=== PATIENT | male | born 1955 | race Caucasian/White ===

== ENCOUNTER 2024-01-06 17:09 | Inpatient (IN) | payer MEDICARE, OTHER, SELFPAY ==
[2024-01-06 13:46] VITALS: BP 140/67
[2024-01-06 14:12] LABS: % Basophils 0.9 % (0-2); % Eosinophils 1.7 % (0-6); % Immature Granulocytes 0.3 % (0-0.5); % Lymphocytes 11.1 % (20.5-51.1); % Monocytes 5.2 % (1.7-9.3); % Neutrophils 80.8 % (42.2-75.2); Absolute Basophils 0.1 10^3/uL (0-0.2); Absolute Eosinophils 0.2 10^3/uL (0-0.7); Absolute Lymphocytes 1.6 10^3/uL (1.2-3.4); Absolute Monocytes 0.7 10^3/uL (0.1-0.6); Absolute Neutrophils 11.3 10^3/uL (1.4-6.5); Hematocrit 41.7 % (39.0-52.0); Hemoglobin 13.5 g/dL (13.0-18.0); Mean Corp Hgb Conc. 32.4 g/dL (33.0-37.0); Mean Corpuscular Hgb 28.7 pg (27.0-31.0); Mean Corpuscular Volume 88.7 fL (80.0-94.0); Mean Platelet Volume 10.1 fL (7.4-10.4); Nucleated Red Blood Cells % 0 % (-); Platelet Count 269 10^3/uL (130-400); Red Cell Dist. Width 15.2 % (11.5-14.5)
[2024-01-06 14:27] LABS: ALT (SGPT) 30 U/L (0-50); AST (SGOT) 47 U/L (17-59); Albumin 3.9 g/dl (3.5-5.0); Alkaline Phosphatase 159 U/L (38-126); Blood Urea Nitrogen 48 mg/dl (9-20); Calcium 11.2 mg/dl (8.4-10.2); Carbon Dioxide 25 mmol/L (22-30); Chloride 103 mmol/L (98-107); Glucose 216 mg/dl (70-99); Potassium 4.4 mmol/L (3.5-5.1); Sodium 138 mmol/L (135-145); Total Bilirubin 0.6 mg/dl (0.2-1.3); Total Protein 6.8 g/dl (6.3-8.2)
[2024-01-06 14:45] LABS: Troponin I 0.579 ng/ml
[2024-01-06 15:11] VITALS: BP 151/69
--- NOTE | 2024-01-06 15:13 | ED.GENMED ---
History of Present Illness
General
Chief Complaint: Blood Pressure Problem
Source: patient
Exam Limitations: none
Time Seen by Provider: 01/06/24 15:02
Travel History
Have you had any contact with someone who has COVID-19?: No
Do you have any symptoms of coronavirus? Fever > 100 degrees, chills, cough, shortness of breath, sore throat, loss of taste or smell, muscle aches, or headache?: No
History of Present Illness
History of Present Illness:
68-year-old male presents with intermittent episodes of a indigestion burning feeling in his chest. Has been going on for weeks. Worse this morning. Currently however at baseline and feels baseline. No shortness of breath no nausea no
diaphoresis. No back pain.
Past History
Past History
ED Past Medical History: CVA (TIA), HTN, Hypercholesterolemia, NIDDM and Other (Gout)
ED Past Surgical History: Other (Catheterization right leg, peroneal vein angioplasty)
Social History
Tobacco: Non-smoker
Alcohol: None
Drug: None
Personal:
Living: with family
Employment: Retired
Family History
Family History: Other (Brother with hiatal hernia)
Review of Systems
Review of Systems
All Other Systems: Not applicable
Constitutional: Denies fever
Respiratory: Reports no symptoms
ABD/GI: Reports no symptoms
Phy Exam
Physical Exam
Physical Exam:
GENERAL: Alert and oriented in no apparent distress
EYE: Orbits normal.
NECK: Supple
CARDIAC: Regular rate and rhythm without any obvious murmurs.
LUNGS: Clear breath sounds,normal
ABDOMEN: Soft, without focal tenderness or distention. Elevated BMI
NEUROLOGICAL: Alert and oriented , grossly non-focal
SKIN: Warm and dry, no rash or lesion, no discoloration, skin intact.
MUSCULOSKELETAL: Left AKA. Right BKA. Well-appearing stumps.
PSYCH: Normal and appropriate interaction.
Course
Orders/Labs/Results
Orders:
Orders
01/06/24
Electrocardiogram (*1) Stat
Reason for Study: Chest Pain
Comment: NO ORDER RECIEVED
01/06/24 13:48
Electrocardiogram (*1) Urgent
Reason for Study: Hypertension, Benign
01/06/24 13:49
EKG- Treatment ONCE
01/06/24 13:59
Complete Blood Count/With Diff Urgent
Comprehensive Metabolic Panel Urgent
Troponin I Urgent
01/06/24 15:53
Aspirin Chewable [Low Strength Aspirin] 324 mg PO NOW STA
Heparin 4,000 units IV NOW STA
Heparin Protocol- PTT Orders As Directed
PTT per Heparin protocol: -Obtain CBC and baseline PTT - if not already collected.
-Obtain PTT 6 hours from start of infusion. Then, every 6 hours until 2 consecutive
PTT's are therapeutic. Then, PTT Daily.
-With each rate change, obtain PTT every 6 hours until 2 consecutive PTT's are
therapeutic. Then, PTT Daily.
Notify MD As Directed
Notify physician if: PTT is greater than or equal to 200.
01/06/24 16:00
Heparin 65784 Units/250 ml 25,000 units in 250 ml IV PER PROTOCOL
Weight to be used for heparin protocol in kilograms (kg):: 128.3
Protocol:: Cardiac Tx/Acute Coronary
PTT Goal Range to be used:: PTT 73 to 111 seconds
Order type:: Initial
INITIAL Infusion Dose (UNITS/KG/hr) & then follow protocol:: 12 units/kg/hr
Infusion Dose in UNITS/hr & then follow protocol (UNITS/hr):: 1,000
INFUSION RATE in mL/hr & then follow protocol (mL/hr):: 10
PTT less than or equal to 64 seconds:: Increase rate by 200 units/hr (+ 2 mL/hr)
PTT 64.1 to 72.9 seconds:: Increase rate by 100 units/hr (+ 1 mL/hr)
PTT 73 to 111 seconds:: Target Range. No change in rate.
PTT 111.1 to 130.9 seconds:: Decrease rate by 100 units/hr (- 1 mL/hr)
PTT 131 to 199.9 seconds:: HOLD for 1 hr. Then decrease rate by 200 units/hr (- 2 mL/hr)
PTT greater than or equal to 200 seconds:: HOLD for 2 hrs & Notify Provider. Then decrease by 200 units/hr (-
2 mL/hr)
Lab follow-up:: Each change, PTT q6h until 2 consecutive are therapeutic. Then PTT
daily.
01/06/24 16:15
PTT Urgent
Comment: Obtain baseline before beginning heparin infusion if not already collected
01/06/24 16:35
Admit/Transfer Patient As Directed
Co-Sign Provider:
Level of Care: Inpatient admission
Assign to:: IVU
Physician / Group: Sheu
Diagnosis: NSTEMI
Reason for Hospitalization: heparin drip, cardiac cath
Expected length of stay greater than two midnights?: Yes
ELOS- Estimated Length of Stay in days: 3
I certify the patient meets the requirements for IP care: Yes
01/06/24 16:45
Code Status As Directed
Resuscitation Status: Full Code
01/06/24 18:16
Troponin I Q6H
01/06/24 22:15
Protime/PTT Urgent
01/07/24 00:00
Troponin I Q6H
01/07/24 06:00
Troponin I Q6H
01/08/24 06:00
Complete Blood Count/No Diff Q2D
Comment: Notify MD if platelet count is <130,000 or decreases by 50% from baseline
01/10/24 06:00
Complete Blood Count/No Diff Q2D
Comment: Notify MD if platelet count is <130,000 or decreases by 50% from baseline
01/12/24 06:00
Complete Blood Count/No Diff Q2D
Comment: Notify MD if platelet count is <130,000 or decreases by 50% from baseline
01/14/24 06:00
Complete Blood Count/No Diff Q2D
Comment: Notify MD if platelet count is <130,000 or decreases by 50% from baseline
01/16/24 06:00
Complete Blood Count/No Diff Q2D
Comment: Notify MD if platelet count is <130,000 or decreases by 50% from baseline
01/18/24 06:00
Complete Blood Count/No Diff Q2D
Comment: Notify MD if platelet count is <130,000 or decreases by 50% from baseline
01/20/24 06:00
Complete Blood Count/No Diff Q2D
Comment: Notify MD if platelet count is <130,000 or decreases by 50% from baseline
01/22/24 06:00
Complete Blood Count/No Diff Q2D
Comment: Notify MD if platelet count is <130,000 or decreases by 50% from baseline
Abnormal Lab Results
01/06/24
13:59
WBC 14.0 H 10^3/uL
(4.8-10.8)
MCHC 32.4 L g/dL
(33.0-37.0)
RDW 15.2 H %
(11.5-14.5)
Absolute Neuts (auto) 11.3 H 10^3/uL
(1.4-6.5)
Absolute Monos (auto) 0.7 H 10^3/uL
(0.1-0.6)
Neutrophils % 80.8 H %
(42.2-75.2)
Lymphocytes % 11.1 L %
(20.5-51.1)
BUN 48 H mg/dl
(9-20)
Creatinine 1.8 H mg/dL
(0.7-1.3)
Glucose 216 H mg/dl
(70-99)
Calcium 11.2 H mg/dl
(8.4-10.2)
Alkaline Phosphatase 159 H U/L
(38-126)
Troponin I 0.579 H* ng/ml
01/06/24 15:53
01/06/24 13:59
Vital Signs
Initial and Last Documented VS:
Initial Vital Signs
Temp Pulse Resp BP Pulse Ox
97.4 F 62 18 140/67 95
01/06/24 13:46 01/06/24 13:46 01/06/24 13:46 01/06/24 13:46 01/06/24 13:46
Last Documented Vital Signs
Temp Pulse Resp BP Pulse Ox
97.4 F 57 14 151/69 98
01/06/24 13:46 01/06/24 15:30 01/06/24 15:30 01/06/24 15:11 01/06/24 15:15
MDM/Problems Addressed
Differential Diagnosis Includes:
Patient with intermittent burning in his chest over weeks. Worse this morning. Positive troponin. Significant history of vascular disease. Currently stable. Referred to cardiology and hospitalist
*Critical Care Note
Total Time (30-74mins, 75-104mins- exclusive of procedures): Not Applicable
Data Reviewed
Review of Other/Old Records Reveals: Labs, Records and Discharge Summary
ED Attending Note
-
Portions of this chart may have been created with voice recognition software.� Occasional wrong word or��sound alike� substitutions may have occurred due to the inherent limitations of voice recognition software.
Discharge Plan
Departure
Patient Disposition: Admit
Date of Disposition: 01/06/24
Time of Disposition: 15:15
Presentation/result/management discussed w/ accepting MD/DO: Cardiology
Discharge Problem:
Non-STEMI PR, History of vascular disease, Renal insufficiency
Interventions
Interventions:
*Risk Screen - Suicide Last Done: 01/06/24 15:15
*General Assessment Last Done: 01/06/24 15:15
*Neglect/Abuse Screening Last Done: 01/06/24 15:15
ED- Fall Risk Assessment Last Done: 01/06/24 15:15
*ED COVID-19 Vaccine History Last Done: 01/06/24 15:15
ED- Cardiac Assessment Last Done: 01/06/24 15:15
ED- Neurological Assessment Last Done: 01/06/24 15:15
ED- Pulmonary Assessment Last Done: 01/06/24 15:15
[2024-01-06 15:15] VITALS: BMI 38.4
--- NOTE | 2024-01-06 15:40 | CON.CAR ---
Addendum entered and electronically signed by Vincent Cervantes MD 01/06/24 17:34:
68 yo male with PMH of PAD s/p bilateral amputations, DM, CKD3b, CVA is admitted with chest pressure. Has been intermittent at rest/minimal activity for about 2 weeks. Then worse this AM so presented to ED. No chest pressure at the time. Exam
with RRR, no murmurs. EKG: NSR, lateral ST depression. TnI 0.5.
Chest pressure, NSTEMI
-currently pain free
-take daily plavix for his PAD: continue
-ASA 324mg and heparin drip
-cath in AM
CKD3b
-nephrology consulted to optimize prior to cath
Original Note:
Consultation
Consultation Request
Date/Time Consultation Requested: 01/06/24 3:15p
Date/Time Consultation Performed: 01/06/24 3:30p
Requesting Provider: Dr. Lemons
Performing Provider: GWEN Jordan for Dr. Cervantes
Reason for Consultation: chest pain
Medical History
-
Chief Complaint: chest pain
History of Present Illness:
Mr. Andrade is a 68 yo male (known to Dr. Cervantes) with CAD (mild on cath 2005), PAD s/p right BKA and left AKA (06/2023) followed by Dr. Anton, HTN, dyslipidemia, hypertriglyceridemia, chronic HFpEF, 1st degree AVB, PACs, IDDM (hgbA1C 8.6% 06/2023), right
thalamic CVA 2014, TIA 2017, CKD3b managed by Dr. Coulnga, GERD, and morbid obesity, who presents to the ER with c/o midsternal chest pressure for 2-3 weeks. Chest pressure occurs at rest, lasts for 30 mins and resolves on its own. This am, chest
pressure lasted for 1 hour. Given his right BKA and left AKA, he does not ambulate and is wheelchair bound, transfers via a sliding board to bed. EKG in the ER shows SR with 1st degree AVB 61 bpm, ST and T wave abnormality, T wave inversion
inferior leads and ST depressed in lateral leads; initial troponin is 0.579. Currently he is chest pain free. He is on chronic Plavix for PAD, will give ASA 324mg now and initiate IV Heparin. ���
Past Medical History
Past Medical History: Other (as above)
Past Surgical History: Other (as above)
Social History
Tobacco: Non-Smoker
Alcohol: None
Personal:
Living: With Family
Family History
Family History: CAD (father age 79 complications of AAA surgery, CAD, HTN.)
Allergies / Home Medications
Allergy/AdvReac Type Severity Reaction Status Date / Time
No Known Drug Allergies Allergy Unknown Verified 01/06/24 13:46
�Medication �Instructions �Recorded �Confirmed �Type
allopurinol 100 mg tablet 100 mg PO DAILY #30 tabs 10/22/21 01/06/24 Rx
clonidine HCl 0.1 mg tablet 0.1 mg PO BID@0800,1700 #60 tabs 10/22/21 01/06/24 Rx
clopidogrel 75 mg tablet 75 mg PO DAILY #30 tabs 10/22/21 01/06/24 Rx
rosuvastatin 40 mg tablet 40 mg PO QPM #30 tabs 10/22/21 01/06/24 Rx
torsemide 5 mg tablet 5 mg PO DAILY Fluid 12/01/21 01/06/24 History
Retention/Swelling
metoprolol succinate 100 mg 100 mg PO DAILY Heart Failure 12/02/21 01/06/24 History
tablet,extended release 24 hr
(Toprol XL)
isosorbide mononitrate 30 mg 30 mg PO DAILY Heart 06/17/23 01/06/24 History
tablet,extended release 24 hr Disease/Condition
docusate sodium 100 mg capsule 100 mg PO DAILYPRN PRN constipaiton 09/02/23 01/06/24 History
(Colace)
finerenone 10 mg tablet (Kerendia) 10 mg PO DAILY 09/02/23 01/06/24 History
insulin regular hum U-500 conc 500 50 unit SC DAILY@1730 09/02/23 01/06/24 History
unit/mL(3 mL) subcut pen (Humulin
R U-500 (Conc) Insulin Kwikpen)
insulin regular hum U-500 conc 500 200 unit SC DAILY 09/02/23 01/06/24 History
unit/mL(3 mL) subcut pen (Humulin
R U-500 (Conc) Insulin Kwikpen)
sodium bicarbonate 650 mg tablet 1,300 mg PO BID 09/02/23 01/06/24 History
acetaminophen 325 mg tablet 650 mg PO Q6H PRN pain 09/06/23 01/06/24 History
lidocaine 4 % topical patch 1 patch topical DAILY PRN 09/06/23 01/06/24 History
(Blue-Emu Lidocaine Patch) prosthetic leg pain
multivitamin 1 tab PO DAILY 09/06/23 01/06/24 History
zinc oxide 13 % topical cream 1 applic topical DAILYPRN PRN bed 01/06/24 01/06/24 History
(Desitin Daily Defense) sores
Review of Systems
-
History Source: Patient and Family ()
All other systems: Negative unless noted
Physical Exam
Vital Signs
Temp Pulse Resp BP Pulse Ox
97.4 F 57 14 151/69 98
01/06/24 13:46 01/06/24 15:30 01/06/24 15:30 01/06/24 15:11 01/06/24 15:15
Lab Results
01/06/24 13:59
01/06/24 13:59
Troponin I 0.579 ng/ml H* 01/06/24 13:59
Physical Exam
General: Well Developed, Well Nourished and No Apparent Distress
HEENT: Normocephalic, Anicteric and Moist Mucous Membranes
Respiratory: Clear and Non Labored Respirations
Cardiac: S1/S2 and Regular Rhythm
Breast: Deferred by me
GI: Soft and Normal Bowel Sounds
Rectal: Deferred by Provider
Musculoskeletal: Other (right BKA, left AKA)
Skin: Warm and Dry
Neuro: AO x 3
Psych: Calm
Impression / Plan
-
NSTEMI - initial troponin 0.579 with chest pressure for 2-3 weeks.
- episodes this am lasted 1 hour.
- trend troponin to peak.
- EKG with SR with 1st degree AVB 61 bpm, ST and T wave abnormality, T wave inversion inferior leads and ST depressed in lateral leads.
- ASA 324mg now, IV Heparin.
- plan for cardiac cath in the am, NPO after midnight.
- continue Plavix.
PAD - s/p right BKA and left AKA.
- on Plavix managed by Dr. Anton.
HTN - stable on outpatient meds, continue.
HLD - stable on Crestor with LDL 47 09/2023.
- continue Crestor.
CKD3b - stable creatinine 1.8 today.
- managed by Dr. Colunga.
IDDM - continue insulin, per primary.
HFpEF - stable, EF 50-55%.
- not in overt HF on exam.
- he does not weigh himself at home due to right BKA and left AKA he is unable to stand.
- monitor.
Data Reviewed
-
EKG: Tracing Personally Visualized and interpreted (SR with 1st degree AVB 61 bpm, ST and T wave abnormality, T wave inversion inferior leads and ST depressed in lateral leads)
Medical Tests (Nuc Med, Echo etc): Report Reviewed by me (echo 03/2023: 50-55%, mild cLVH, no significant valve disease)
Labs: Labs Reviewed by me
Old Records: Reviewed
[2024-01-06 16:00] VITALS: BP 121/64
[2024-01-06] MEDS: HEPARIN 25000 UNITS/250 ML IV (16:16)
[2024-01-06] MEDS: LOW STRENGTH ASPIRIN 324 MG PO (16:16)
[2024-01-06] MEDS: HEPARIN 4000 UNITS IV (16:16)
[2024-01-06 16:46] LABS: APTT 27.7 Sec (23.4-35.0)
--- NOTE | 2024-01-06 16:50 | HPS.HSE ---
Addendum entered and electronically signed by Leatha Lamb MD 01/06/24 18:44:
I saw and examined the patient.
The HAIRSPRING FABRICATION SUPERVISOR or PA's note was reviewed and I agree with the note.
Comment:
68M ext pmhx including PVD s/p Lt AKA Rt BKA CKD III CVA HTN HLD DM HFpEF Morbid Obesity p/w intermittent progressive chest pain/pressure past several days patient originally attributed to indigestion, prompted to visit ED when symptom became
particularly severe. Typically notes symptom in morning, several times during the day, symptom can last up to an hour. ED eval was notable for troponin elevation and EKG concerning for inferior lead ST depressions and lateral lead T wave
inversions. Otherwise vital signs stable. Denied diaphoresis shortness of breath. Mild hypercalcemia noted. Endorses good oral intake. Denies appetite loss
Physical Exam
General: No pallor, cyanosis, or jaundice. Obese
HEENT: Throat clear. PERRLA Normocephalic atraumatic, skin growth noted on scalp present for years per patient and , nontender
NECK: Supple. No JVD Carotid Bruits
RESPIRATORY: Lungs clear to auscultation. No crackles wheezes stridor
CVS: S1, S2 normal. RRR. No murmur, rub or gallop.
ABDOMEN: Soft, non-tender. No distension. BS+/normal.
EXTREMITIES: No peripheral cyanosis or edema. s/p Lt AKA and Rt BKA
INK GRINDER: AOx3
#Chest Pain possible NSTEMI
#Hypercalcemia
#Diabetes
#CKD III
#HTN
trend troponin
cont home aid
cardio eval appreciated hep gtt, npo after midnight for cath
glycemic control, Diabetes HAIRSPRING FABRICATION SUPERVISOR consult
Nephro eval
blood pressure control
Original Note:
Family Physician
-
Family Physician: Geoffrey Maya
Chief Complaint
-
Chest Pain
History of Present Illness
Patient is 68-year-old male past medical history of peripheral arterial disease, hypertension, hyperlipidemia, insulin-dependent diabetes mellitus, and CKD who presents with chest pain/pressure. Patient reports he has had intermittent chest
pressure for the last several days. He describes it as a burning/pressure in the middle of his chest. He states he has had it several times over the last few days. He states it usually last about an hour and then resolves. He states it seems to
occur more frequently in the morning. He denies any associated shortness of breath or diaphoresis. He denies any chest pain/pressure at the present time.
Medical History
Past Medical History
Past Medical History: Reports Other
Additional Past Medical History:
Peripheral Arterial Disease
Essential Hypertension
Hyperlipidemia
Diabetes Mellitus, Type II
CKD Stage III
Gout
Morbid Obesity
Past Surgical History: Reports Other
Additional Past Surgical History:
Right Below Knee Amputation
Left Above Knee Amputation
Social History
Tobacco: Non-smoker
Alcohol: None
Personal:
Living: With Family
Family History
Family History: Not pertinent
Allergies / Home Medications
Allergies reflects when Allergies were last updated in [employer].
Home Medications with original date entered in [employer]
Allergy/Medication List:
Allergies
Allergy/AdvReac Type Severity Reaction Status Date / Time
No Known Drug Allergies Allergy Unknown Verified 01/06/24 13:46
Home Medications
allopurinol 100 mg tablet 100 mg PO DAILY #30 tabs 10/22/21
clonidine HCl 0.1 mg tablet 0.1 mg PO BID@0800,1700 #60 tabs 10/22/21
clopidogrel 75 mg tablet 75 mg PO DAILY #30 tabs 10/22/21
rosuvastatin 40 mg tablet 40 mg PO QPM #30 tabs 10/22/21
torsemide 5 mg tablet 5 mg PO DAILY Fluid Retention/Swelling 12/01/21
metoprolol succinate 100 mg tablet,extended release 24 hr (Toprol XL) 100 mg PO DAILY Heart Failure 12/02/21
isosorbide mononitrate 30 mg tablet,extended release 24 hr 30 mg PO DAILY Heart Disease/Condition 06/17/23
docusate sodium 100 mg capsule (Colace) 100 mg PO DAILYPRN PRN constipaiton 09/02/23
finerenone 10 mg tablet (Kerendia) 10 mg PO DAILY 09/02/23
insulin regular hum U-500 conc 500 unit/mL(3 mL) subcut pen (Humulin R U-500 (Conc) Insulin Kwikpen) 50 unit SC DAILY@1730 09/02/23
insulin regular hum U-500 conc 500 unit/mL(3 mL) subcut pen (Humulin R U-500 (Conc) Insulin Kwikpen) 200 unit SC DAILY 09/02/23
sodium bicarbonate 650 mg tablet 1,300 mg PO BID 09/02/23
acetaminophen 325 mg tablet 650 mg PO Q6H PRN pain 09/06/23
lidocaine 4 % topical patch (Blue-Emu Lidocaine Patch) 1 patch topical DAILY PRN prosthetic leg pain 09/06/23
multivitamin 1 tab PO DAILY 09/06/23
zinc oxide 13 % topical cream (Desitin Daily Defense) 1 applic topical DAILYPRN PRN bed sores 01/06/24
Review of Systems
-
A 12 point ROS was completed and negative except as noted: Yes
Constitutional: Denies Fever or Chills
Respiratory: Denies Cough or Trouble Breathing
Cardiac: Reports Chest Pain; Denies Diaphoresis, Palpitations or Syncope
Abdomen/GI: Denies Abdominal Pain, Nausea or Vomiting
Physical Exam
Vital Signs
Vital Signs
Temp Pulse Resp BP Pulse Ox
97.4 F 57 14 151/69 98
01/06/24 13:46 01/06/24 15:30 01/06/24 15:30 01/06/24 15:11 01/06/24 15:15
Physical Exam
General: Comfortable and Conversant
HEENT: Anicteric and Moist mucous membranes
Respiratory: Clear and Non Labored Respirations
Cardiac: S1/S2 and Regular Rhythm
GI: Soft and Non Tender
Rectal: Deferred by Provider
Musculoskeletal: No Clubbing, No Cyanosis and Other (Right BKA; Left AKA)
Skin: Warm and Dry
Neuro: Awake, Alert, Oriented and Nonfocal/grossly intact
Laboratory Results
-
01/06/24 15:53
01/06/24 13:59
Laboratory Results
APTT 27.7 Sec (23.4-35.0) 01/06/24 16:15
Total Bilirubin 0.6 mg/dl (0.2-1.3) 01/06/24 13:59
AST 47 U/L (17-59) 01/06/24 13:59
ALT 30 U/L (0-50) 01/06/24 13:59
Alkaline Phosphatase 159 U/L (38-126) H 01/06/24 13:59
Troponin I 0.579 ng/ml H* 01/06/24 13:59
Data Reviewed
-
Lab Data: Labs Reviewed by me
Old Records: Reviewed
Impression/Plan
-
NSTEMI
-Consult cardiology
-Continue heparin drip
-Continue Plavix
-NPO after midnight for cardiac cath in AM
Hypercalcemia
-Consult Nephrology
-Check ionized calcium, vitamin D and PTH
Peripheral Arterial Disease s/p right BKA and left AKA
-Continue Plavix
Essential Hypertension
-Continue clonidine and Toprol-XL
Hyperlipidemia
-Continue rosuvastatin
Diabetes Mellitus, Type II
-Check hemoglobin A1c
-Consult nurse educator for insulin management
-Continue Humulin R U�500
-Monitor sugars and continue coverage insulin
CKD Stage III
-Give sodium bicarb infusion pre/post cardiac cath
-Monitor creatinine closely
-Monitor I's and O's, and daily weights
-Continue Kerendia
-Continue sodium bicarbonate tabs
Morbid Obesity due to Excess Calories
-Affects all aspects of care
DVT proph: Heparin Drip
Code Status: Full Code
[2024-01-06 17:00] VITALS: BP 139/65
--- NOTE | 2024-01-06 17:03 | W.CON.NEPH ---
Consultation
-
Date/Time Consultation Requested: 01/06/2024 4:30 PM
Date/Time Consultation Performed: 01/06/2024 4:30 PM
Requesting Provider: Phyllis
Performing Provider: gerard
Reason for Consultation: CKD 3b
Medical History
-
Chief Complaint: CKD 3b
History of Present Illness:
Mr. Andrade is a 68 yo male (known to Dr. Cervantes) with CAD (mild on cath 2005), PAD s/p right BKA and left AKA (06/2023) followed by Dr. Anton, HTN, dyslipidemia, hypertriglyceridemia, chronic HFpEF, 1st degree AVB, PACs, IDDM (hgbA1C 8.6% 06/2023), right
thalamic CVA 2014, TIA 2017, CKD3b managed by Dr. Colunga, GERD, and morbid obesity, who presents to the ER with c/o midsternal chest pressure for 2-3 weeks. Chest pressure occurs at rest, lasts for 30 mins and resolves on its own. This am, chest
pressure lasted for 1 hour. Given his right BKA and left AKA, he does not ambulate and is wheelchair bound, transfers via a sliding board to bed. EKG in the ER shows SR with 1st degree AVB 61 bpm, ST and T wave abnormality, T wave inversion
inferior leads and ST depressed in lateral leads; initial troponin is 0.579. Currently he is chest pain free. He is on chronic Plavix for PAD, will give ASA 324mg now and initiate IV Heparin. �His baseline creatinine was stable at 1.7 last week in
the setting of his CKD. He is maintained chronically on torsemide therapy for his congestive heart failure. He is maintained on insulin therapy for his diabetes. We were consulted for his chronic kidney disease stage IIIb in the setting of his
non-ST elevation [place] which will require cardiac catheterization in the morning.��
Past Medical History
CKD stage IIIb baseline creatinine 1.7
Insulin requiring diabetes
PAD with bilateral amputations of lower extremity
Prior history of CVA
Dyslipidemia
Congestive heart failure with preserved ejection fraction
Right thalamic CVA in 2014 with TIA in 2018
Obesity
Ambulatory dysfunction
Coronary artery disease of nonobstructive type
Social History
Tobacco: Non-Smoker
Alcohol: None
Family History
no ckd
Allergies / Home Medications
Allergy/AdvReac Type Severity Reaction Status Date / Time
No Known Drug Allergies Allergy Unknown Verified 01/06/24 13:46
�Medication �Instructions �Recorded �Confirmed �Type
allopurinol 100 mg tablet 100 mg PO DAILY #30 tabs 10/22/21 01/06/24 Rx
clonidine HCl 0.1 mg tablet 0.1 mg PO BID@0800,1700 #60 tabs 10/22/21 01/06/24 Rx
clopidogrel 75 mg tablet 75 mg PO DAILY #30 tabs 10/22/21 01/06/24 Rx
rosuvastatin 40 mg tablet 40 mg PO QPM #30 tabs 10/22/21 01/06/24 Rx
torsemide 5 mg tablet 5 mg PO DAILY Fluid 12/01/21 01/06/24 History
Retention/Swelling
metoprolol succinate 100 mg 100 mg PO DAILY Heart Failure 12/02/21 01/06/24 History
tablet,extended release 24 hr
(Toprol XL)
isosorbide mononitrate 30 mg 30 mg PO DAILY Heart 06/17/23 01/06/24 History
tablet,extended release 24 hr Disease/Condition
docusate sodium 100 mg capsule 100 mg PO DAILYPRN PRN constipaiton 09/02/23 01/06/24 History
(Colace)
finerenone 10 mg tablet (Kerendia) 10 mg PO DAILY 09/02/23 01/06/24 History
insulin regular hum U-500 conc 500 50 unit SC DAILY@1730 09/02/23 01/06/24 History
unit/mL(3 mL) subcut pen (Humulin
R U-500 (Conc) Insulin Kwikpen)
insulin regular hum U-500 conc 500 200 unit SC DAILY 09/02/23 01/06/24 History
unit/mL(3 mL) subcut pen (Humulin
R U-500 (Conc) Insulin Kwikpen)
sodium bicarbonate 650 mg tablet 1,300 mg PO BID 09/02/23 01/06/24 History
acetaminophen 325 mg tablet 650 mg PO Q6H PRN pain 09/06/23 01/06/24 History
lidocaine 4 % topical patch 1 patch topical DAILY PRN 09/06/23 01/06/24 History
(Blue-Emu Lidocaine Patch) prosthetic leg pain
multivitamin 1 tab PO DAILY 09/06/23 01/06/24 History
zinc oxide 13 % topical cream 1 applic topical DAILYPRN PRN bed 01/06/24 01/06/24 History
(Desitin Daily Defense) sores
Review of Systems
-
History Source: Patient
All other systems: Negative unless noted
Constitutional: No Symptoms
EENT: No Symptoms
Respiratory: No Symptoms
Cardiac: Chest Pain
Abdomen/GI: No Symptoms
: No Symptoms
Musculoskeletal: Other (Right BKA left AKA)
Skin: No Symptoms
Neurological: Other (Neuropathy)
Endocrine: No Symptoms
Hematologic/Lymphatic: No Symptoms
Physical Exam
Vital Signs
Vital Signs
Temp Pulse Resp BP Pulse Ox
97.4 F 57 14 151/69 98
01/06/24 13:46 01/06/24 15:30 01/06/24 15:30 01/06/24 15:11 01/06/24 15:15
Lab Results
01/06/24 15:53
01/06/24 13:59
WBC Cancelled 01/06/24 15:53
RBC Cancelled 01/06/24 15:53
Hgb Cancelled 01/06/24 15:53
Hct Cancelled 01/06/24 15:53
Plt Count Cancelled 01/06/24 15:53
Sodium 138 mmol/L (135-145) 01/06/24 13:59
Potassium 4.4 mmol/L (3.5-5.1) 01/06/24 13:59
Chloride 103 mmol/L (98-107) 01/06/24 13:59
Carbon Dioxide 25 mmol/L (22-30) 01/06/24 13:59
BUN 48 mg/dl (9-20) H 01/06/24 13:59
Creatinine 1.8 mg/dL (0.7-1.3) H 01/06/24 13:59
eGFR 41.00 01/06/24 13:59
Glucose 216 mg/dl (70-99) H 01/06/24 13:59
Calcium 11.2 mg/dl (8.4-10.2) H 01/06/24 13:59
Albumin 3.9 g/dl (3.5-5.0) 01/06/24 13:59
Physical Exam
General: AOx3, No Distress and Nontoxic
HEENT: EOMI, Anicteric, Conjunctivae Clear, Ear/Nose Intact, Hearing Normal, Oropharynx Clear/Moist, Facial Symmetry, Trachea Midline, No JVD and No Thyromegaly
Respiratory: Clear, Nonlabored Respirations and Other (Decreased breath sounds to bases)
Cardiac: S1/S2 and Regular Rate/Rhythm (Distant heart sounds)
Breast: Deferred by me
Abdomen: Soft, Nontender, Nondistended, Normal Bowel Sounds and No Hepatosplenomegaly
Rectal: Deferred by Provider
Genito-urinary: No Costovertebral Tender
Musculoskeletal: No Clubbing, No Cyanosis, Edema (+1) and Other (Right BKA left AKA)
Skin: No Rash
Neuro: CN II-XII (Neurosensory deficits at stump site) and Strength
Hematologic/Lymphatic: No Cervical Lymphadenopathy, No Submandibular Lymphadenopathy and No Supraclavicular Lymphadenopathy
Psych: Mood/afflect pleasant, Insight/judgement good and Appropriate
Assessment/Plan
-
Impression:
CKD stage IIIb with baseline creatinine of 1.7
Non-ST elevation [place]
Obesity
History of coronary artery disease
History of stroke
Diabetes with multiple microvascular complication
Multidrug resistant hypertension
Gout
Congestive heart failure with preserved EF
PAD with bilateral lower extremity amputations
Chronic metabolic acidosis on sodium bicarbonate
Plan:
CKD 3b in setting of NSTEMI:
-Patient will be at low to moderate risk for contrast nephropathy following cardiac catheterization, given his congestive heart failure, CKD stage IIIb, diabetes, and peripheral vascular disease
-We will provide IV fluids for contrast prophylaxis pre and postprocedure
-We will withhold his torsemide prior to the cardiac cath tomorrow
-His kidney function is currently at its baseline
-Patient currently on heparin drip in setting of unstable angina
Congestive heart failure:
-Does not appear to have decompensated congestive heart failure at this time
-Reinitiate torsemide following cardiac catheterization tomorrow
Hypertension:
-Maintain current oral antihypertensives
Metabolic acidosis:
-Maintain oral sodium bicarbonate
Data Reviewed
-
Medical Tests (Nuc Med, Echo etc): Other (EKG report reviewed sinus rhythm anterior lateral ischemic pattern)
Labs: Labs Reviewed by me (Basic metabolic panel CBC troponin)
Old Records: Reviewed (Reviewed old lab work from last week including creatinine 1.7)
[2024-01-06 18:00] VITALS: BMI 38.4
--- NOTE | 2024-01-06 18:32 | W.PN.UPDATE ---
Update Note
Progress Note Update
billing purposes
[2024-01-06 18:35] VITALS: BP 157/65
[2024-01-06 18:42] VITALS: BMI 38.2
--- NOTE | 2024-01-06 19:22 | PTCARENOTE ---
Received patient from the ED to room 2254, at the bedside. Heparin infusing at 1000 units/hr, patient denies any pain at this time. Aware he will be NPO for cath in the AM. Nursing admission assessment completed, call shantal within reach.
[2024-01-06 19:26] LABS: Glucose - Point of Care 102 mg/dl (70-99)
[2024-01-06] MEDS: CATAPRES 0.100000000000000006 MG PO (19:38)
[2024-01-06] MEDS: CRESTOR 40 MG PO (19:38)
[2024-01-06] MEDS: SODIUM BICARBONATE 1300 MG PO (19:38)
--- NOTE | 2024-01-06 20:57 | PTCARENOTE ---
Resumed care at handoff. Heparin gtt infusing at 1000units/hr. No c/o chest pain at this time. Tele- SB 40-50s. Pt w/ RLE BKA c/d/i and LLE AKA pink scabbed HAKEEM. Pt states having breakfast, skipping lunch, and having turkey sandwich for dinner. Pt
due for R U-500 Humulin 50 units at 1999. Accu-check 102. Pt refusing insulin. Pt states he did not have much to eat today and will be NPO for tomorrows cath. States he would not take any insulin if he was at home. Paola Morales aware.
--- NOTE | 2024-01-06 21:10 | PTCARENOTE ---
Pt troponin 8.080. Paola Morales aware. No c/o CP. Next troponin due for 00:00.
--- NOTE | 2024-01-06 21:35 | PN.PHA.U500 ---
PHA U500 Dosing
- -
Information provided by: Patient
Patient Uses a U-500: Pen
If patient uses vial, insulin measured in: Insulin Units
How often is U-500 taken: 0800,1730
U-500 Insulin dose adjusted based on blood sugar: No
When was last dose of U-500 Insulin taken: 4/4 AM
How much U-500 Insulin was taken: 200 UNITS
[2024-01-06 22:49] LABS: Glucose - Point of Care 111 mg/dl (70-99)
[2024-01-06 22:50] VITALS: BP 147/67
[2024-01-06 23:16] LABS: INR 1.11; PT 14.4 Sec (11.4-14.6)
[2024-01-06 23:17] LABS: APTT 40.5 Sec (23.4-35.0)
[2024-01-07] VITALS (13 sets, daily range): BP systolic 89–160; BP diastolic 49–73; BMI 37.8
[2024-01-07 05:21] LABS: Ionized Calcium 1.34 mMOL/L (1.15-1.33)
[2024-01-07 05:22] LABS: Hematocrit 42.2 % (39.0-52.0); Hemoglobin 13.5 g/dL (13.0-18.0); Mean Corpuscular Volume 90.8 fL (80.0-94.0); Mean Platelet Volume 10.4 fL (7.4-10.4); Platelet Count 243 10^3/uL (130-400); Red Blood Cell Count 4.65 10^6/uL (4.70-6.10); Red Cell Dist. Width 15.3 % (11.5-14.5); White Blood Cell Count 12.1 10^3/uL (4.8-10.8)
[2024-01-07 05:34] LABS: APTT 43.1 Sec (23.4-35.0)
[2024-01-07 05:54] LABS: Blood Urea Nitrogen 44 mg/dl (9-20); Calcium 11.2 mg/dl (8.4-10.2); Carbon Dioxide 22 mmol/L (22-30); Chloride 106 mmol/L (98-107); Estimated Creatinine Clearance 59 ml/min; Glucose 182 mg/dl (70-99); Magnesium 2.2 mg/dl (1.6-2.3); Phosphorus 3.9 mg/dl (2.5-4.5); Potassium 4.5 mmol/L (3.5-5.1); Sodium 139 mmol/L (135-145); eGFR 43.91
[2024-01-07 06:10] LABS: Vitamin D, 25-OH*** 37.8 ng/mL (30-80)
--- NOTE | 2024-01-07 07:09 | W.PN.HOSP.TC ---
Today's Communication/Plan
-
dual antiplatelet
glycemic control
bicarb gtt as per nephro
monitor renal function calcium
blood pressure control
Assessment / Plan
Assessment / Plan
Physical Exam
General: No pallor, cyanosis, or jaundice. Obese
HEENT: Throat clear. PERRLA Normocephalic atraumatic, skin growth noted on scalp present for years per patient and , nontender
NECK: Supple. No JVD Carotid Bruits
RESPIRATORY: Lungs clear to auscultation. No crackles wheezes stridor
CVS: S1, S2 normal. RRR. No murmur, rub or gallop.
ABDOMEN: Soft, non-tender. No distension. BS+/normal.
EXTREMITIES: No peripheral cyanosis or edema. s/p Lt AKA and Rt BKA
PARAMEDIC: AOx3
68M PVD Lt AKA Rt BKA CKD III CVA HTn HLD Morbid Obesity Gout HFpEF here for intermittent chest pain troponin elevation EKG changes concerning to NSTEMI
NSTEMI
Cardiology consult appreciated
s/p cath 01/06 severe multivessel disease, successful stenting severe D1 disease
Dual antiplatelet 12 mo
Hypercalcemia
-Consult Nephrology appreciated
-vitamin D wnl
-PTH pending
Peripheral Arterial Disease s/p right BKA and left AKA
-Continue Plavix
Essential Hypertension
-Continue clonidine and Toprol-XL
Hyperlipidemia
-Continue rosuvastatin
Diabetes Mellitus, Type II
-A1c 7.9
-Consult perioperative educator for insulin management
-Continue Humulin R U�500
-Monitor sugars and continue coverage insulin
CKD Stage III
- sodium bicarb infusion pre/post cardiac cath as per Nephro
-Monitor creatinine closely
-Monitor I's and O's, and daily weights
-Continue Kerendia
-resume home oral bicarb when infusion completes.
Morbid Obesity due to Excess Calories
-Affects all aspects of care
DVT proph: Heparin
Code Status: Full Code
discussed with patient and his Joanne at bedside
I spent a total of 54 minutes with the patient or on the floor. More than 50% of this time involved counseling and coordination of care.
Anticipated Discharge: 24 - 48 hours
Subjective/Interval History
-
Date of Service: January 07, 2024
Seen and examined at bedside in no acute distress sitting up comfortably in bed. Reports complete resolution of chest/pain pressure. Denied new acute issues. Overall reported feeling well. Patient NPO awaiting cath at time of evaluation.
Objective Data
-
Labs:
Laboratory Results
01/06/24 01/07/24 01/07/24
22:59 05:15 12:00
WBC 12.1 H
Hgb 13.5
Hct 42.2
Plt Count 243
PT 14.4
INR 1.11
APTT 40.5 H 43.1 H Pending
Sodium 139
Potassium 4.5
Chloride 106
Carbon Dioxide 22
BUN 44 H
Creatinine 1.7 H
Glucose 182 H
Calcium 11.2 H
Vital Signs:
Vital Signs
Temp Pulse Resp BP Pulse Ox
98.2 F 54 16 151/73 98
01/07/24 04:59 01/07/24 05:15 01/07/24 04:59 01/07/24 04:59 01/07/24 04:59
I&O
01/06/24 01/07/24 01/08/24
06:59 06:59 06:59
Intake Total 240 / 240
Output Total 1150 / 1150
Balance -910 / -910
--- NOTE | 2024-01-07 07:36 | PN.DE.MGMTRT ---
Insulin Management
- -
01/07/2024: Diabetes Management Consult
68 y/o Male, well known to me from previous hosp admission. PMH includes: HFpEF, PVD (R AKA), CKD3, CVA, HTN, HLD, GERD, PAD, morbid obesity and IDDM. Pt p/w intermittent progressive chest pain/pressure due to NSTEMI. Prior to admission was taking
U-500 insulin 200 units in AM and 50 units with dinner. Last A1C 8.6% as of 06/18/23.
He routinely sees Endocrine Dr. Hearn at [place] and uses a CGM- Dexcom G7.
Glucose has been stable since admission, FBG 182 this AM. No U-500 insulin adm this morning, Pt was NPO for Cardiac Cath.
He is seen in room post cath, resting flat in bed, awake, alert, able to engage in discussion re:diabetes regimen. Current Glucose post cath is 244.
Discussed with nurse, will order reduced dose of 150 units of U-500 insulin to be given now.
Pt will resume his usual OP dose of U-500, 200 units in AM and 50 units in PM starting this evening as ordered by primary team.
Cont moderate corrective insulin with meals
Will follow glucose for need to increase evening U-500.
Diabetes History
- -
Type of Diabetes: 2 requiring insulin
Pre-Admission Diabetes Regimen
01/06/24 01/07/24
13:59 05:15
Creatinine 1.8 H 1.7 H
Insulin Pump Settings
IP Diabetes Regimen
01/06/24 01/06/24 01/06/24
13:59 19:24 22:48
Glucose 216 H
POC Glucose 102 H 111 H
01/07/24
05:15
Glucose 182 H
POC Glucose
Patient Education
[2024-01-07 07:53] LABS: Glucose - Point of Care 216 mg/dl (70-99)
[2024-01-07] MEDS: SODIUM BICARBONATE 1150 MEQ IV (08:34)
[2024-01-07] MEDS: PLAVIX 75 MG PO (08:37)
[2024-01-07] MEDS: IMDUR (EXTENDED RELEASE) 30 MG PO (08:37)
[2024-01-07] MEDS: CATAPRES 0.100000000000000006 MG PO ×2 (08:37→18:14)
[2024-01-07] MEDS: TOPROL XL 100 MG PO (08:37)
[2024-01-07] MEDS: SODIUM BICARBONATE PO (08:40)
--- NOTE | 2024-01-07 08:42 | PTCARENOTE ---
started IV sodium bicarb gtt at 3ml/kg/hr or 300ml/hr via right forearm as ordered. IV heparin @ 1400units an hour via righty forearm. lab coordinator called and report given.
[2024-01-07 08:50] LABS: Glycohemoglobin (HgbA1c) 7.9 % (4.0-5.6)
[2024-01-07 10:04] LABS: ACT-LR - POC 281 Seconds (116-155)
--- NOTE | 2024-01-07 10:37 | ITS.CL.CATH ---
Data Deliverables Manager - Catheterization
Cardiac Catheterization
Procedure Report:
CARDIAC CATHETERIZATION REPORT
Date of Procedure: 01/07/2024
Referring: Trell Cervantes MD, PhD
Indication: Non-STEMI (troponin peak 17)
HEMODYNAMIC DATA
AO: 148/30
LV: Not done
LEFT VENTRICULOGRAPHY: Not done
CORONARY ANGIOGRAPHY
Dominance: Right
Left Main: Normal
LAD: 30% stenosis in the mid LAD distal to the takeoff of the large first diagonal branch. There is a long angulated segment of diffuse disease to 60-70% in the mid to distal LAD. D1 is a large branch with 90% proximal stenosis. The lesion
segment is followed by the takeoff of a medium sized branch with diffuse mild disease. The diagonal then bifurcates into a smaller daughter branch with 80% proximal stenosis and a much larger daughter branch with 60% proximal stenosis.
Circumflex: The circumflex has 60% ostial stenosis and gives rise to a tiny OM1 and a tiny diffusely severely diseased OM 2. The circumflex gives rise to a medium size bifurcating OM 3 which is occluded proximal to the bifurcation with faint
bridging collateral flow to the small diseased daughter branches
RCA: Dominant vessel with 20% mid stenosis. The medium sized PDA has mild diffuse disease. The small to medium sized right posterolateral branches have diffuse severe disease
Angioplasty: At the conclusion of the diagnostic study, we proceeded with PCI of the large distribution first diagonal branch. Heparin was used for anticoagulation. An additional Plavix 300 mg was administered at the procedure conclusion. A 6
[place]i EBU 3.5 guide catheter was advanced to the left coronary ostium. A BMW wire was easily passed through the diseased segment with the wire tip placed in the large daughter branch of D1. Serial angioplasty with a 2.0 x 20 Euphora balloon to 10
carlene along the length of the lesion was followed by placement of a 2.5 x 34 [place] KANE deployed at 15 carlene then followed with postdilatation using a 2.5 NC Euphora to 18 carlene along the entire length of the stent. The final angiographic result
was outstanding. There were no procedural complications. The other two branches of D1 remained patent
Closure Device: 6 Israeli Angio-Seal RFA. Of note, a right radial artery approach could not be considered as he has no palpable right radial pulse. A left radial procedure was felt unwise as the patient is a bilateral amputee and would have limited
conduit for CABG. Catheter passage through the radial artery has been shown to increase the risk of intimal hyperplasia potentially taking away the option for a left radial artery conduit
Radiation (mGy): 1259
DAP (cm2.Gy): 82.4
Fluoroscopy time: 8.1 minutes
CONCLUSIONS
1: ACS/non-STEMI presentation
2: Systemic hypertension
3. Severe multivessel CAD as described
4. Successful stenting of severe D1 disease using 2.5 x 34 [place] KANE
5. Recommend dual antiplatelet therapy for 12 months and aggressive risk factor modification efforts
Copy to: Trell Cervantes MD, PhD, Geoffrey Maya,
Kedar Bustamante MD, FAC, [facility]
[2024-01-07 11:07] LABS: Glucose - Point of Care 244 mg/dl (70-99)
--- NOTE | 2024-01-07 11:14 | PTCARENOTE ---
patient returned from [employer] with right fem approach which was angio sealed, dsg. D/I, popliteal pulse weak but present. site has no oozing, no hematoma, instructed patient that he can sit up at 1300. IV sodium bicarb which was decreased in cath
lab to 100ml/hr as ordered.
--- NOTE | 2024-01-07 12:03 | CM ---
Addendum entered by ORLY Villanueva 01/07/24 13:41:
[facility] able to accept for resumption of care.
[facility] Fax:
Original Note:
CM following for DC planning needs.
Met w/ patient at bedside to complete initial assessment.
Pt. has h/o R BKA, L AKA. He resides w/ his spouse in a private 2 story home w/ 1st floor set up/ramp accessible. Pt. is wheelchair bound; is able to transfer indep. or assist x1 (spouse).
Pt. has hospital bed, commode, wheelchair in the home.
He is receiving VN thru [facility]. He would like to resume care upon DC. Referral sent to [facility], requesting [facility]-awaiting response.
Pt. has h/o SNF @ [facility] in 2022 x3 weeks.
Pt. will need ambul. transport home. He typically uses [facility] for MD appointments but can use whichever ambulance company contracts with.
DC plan is for home w/ [facility] resumption of care via BLS ambul.
[2024-01-07] MEDS: HUMULIN R U-500 (CONCENTRATED) 150 UNITS SC (12:52)
--- NOTE | 2024-01-07 13:01 | PTCARENOTE ---
patients head elevated and lunch was ordered. patient was given RU 500 Humulin insulin 150 units as ordered.
--- NOTE | 2024-01-07 13:15 | PTCARENOTE ---
patient is refusing NovoLog sliding scale as ordered, 'patient stated that I donot take that insulin at home.' explained to patient as to why that was ordered, patient understands and still refuses.
--- NOTE | 2024-01-07 13:45 | CARDSERVLU ---
Echocardiogram with [facility] completed after protocol screening completed. Allergies verified.
Patent IV site: _R AC____
IV site flushed with 0.9% NaCl pre and post administration.
Diluted bolus method utilized to enhance visualization of ventricular kiran.
Total volume given: __2.5__ mL
Patient tolerated all procedures well without complications.
--- NOTE | 2024-01-07 13:53 | PTCARENOTE ---
Echo being completed at bedside. IV sodium bicarb D/C'd as ordered.
--- NOTE | 2024-01-07 15:53 | W.PN.NEPH.PH ---
Today's Communication / Plan
-
follow labs
Assessment/Plan
-
Impression:
CKD stage IIIb with baseline creatinine of 1.7
Non-ST elevation [place]
Obesity
History of coronary artery disease
History of stroke
Diabetes with multiple microvascular complication
Multidrug resistant hypertension
Gout
Congestive heart failure with preserved EF
PAD with bilateral lower extremity amputations
Chronic metabolic acidosis on sodium bicarbonate
Plan:
CKD 3b in setting of NSTEMI:
-Patient will be at low to moderate risk for contrast nephropathy following cardiac catheterization, given his congestive heart failure, CKD stage IIIb, diabetes, and peripheral vascular disease
cont IVF as ordered post contrast
resume diuretics in 1-2days
-His kidney function is currently at its baseline
BP stable
-Maintain oral sodium bicarbonate
hypercalcemia-PTH pending, normal vit D level, monitor level
s/p cath today with MVD, s/p KANE of D1 branch
-
-
Date of Service: January 07, 2024
CC / HPI / ROS
-
Chief Complaint:
CKD
History of Present Illness:
cr stable at 1.7, calcium at 11.2
BP stable s/p cath with stent D1 brach 01/06
non oliguric
Review of Systems:
no CP or sob
no n/v
Labs
-
Labs:
WBC 12.1 10^3/uL (4.8-10.8) H 01/07/24 05:15
RBC 4.65 10^6/uL (4.70-6.10) L 01/07/24 05:15
Hgb 13.5 g/dL (13.0-18.0) 01/07/24 05:15
Hct 42.2 % (39.0-52.0) 01/07/24 05:15
Plt Count 243 10^3/uL (130-400) 01/07/24 05:15
Sodium 139 mmol/L (135-145) 01/07/24 05:15
Potassium 4.5 mmol/L (3.5-5.1) 01/07/24 05:15
Chloride 106 mmol/L (98-107) 01/07/24 05:15
Carbon Dioxide 22 mmol/L (22-30) 01/07/24 05:15
BUN 44 mg/dl (9-20) H 01/07/24 05:15
Creatinine 1.7 mg/dL (0.7-1.3) H 01/07/24 05:15
eGFR 43.91 01/07/24 05:15
Glucose 182 mg/dl (70-99) H 01/07/24 05:15
Calcium 11.2 mg/dl (8.4-10.2) H 01/07/24 05:15
Phosphorus 3.9 mg/dl (2.5-4.5) 01/07/24 05:15
Albumin 3.9 g/dl (3.5-5.0) 01/06/24 13:59
Physical Exam
-
Vital Signs:
Vital Signs
Temp Pulse Resp BP Pulse Ox
98.1 F 65 16 121/53 94
01/07/24 15:15 01/07/24 15:30 01/07/24 15:15 01/07/24 15:16 01/07/24 15:15
Cardiovascular:: Regular rate and rhythm
Respiratory:: Bilateral: CTA
Lung Excursion:: Normal
Abdomen:: Nontender and Soft
Anton Catheter: No
Other Findings::
right BKA, left AKA
[2024-01-07 17:28] LABS: Glucose - Point of Care 243 mg/dl (70-99)
--- NOTE | 2024-01-07 17:34 | PTCARENOTE ---
BS completed by us 243, patient checked his own device in his stomach and the BS read 291.
[2024-01-07] MEDS: CRESTOR 40 MG PO (18:15)
[2024-01-07] MEDS: HUMULIN R U-500 (CONCENTRATED) 50 UNITS SC (19:01)
[2024-01-07 22:02] LABS: Glucose - Point of Care 209 mg/dl (70-99)
--- NOTE | 2024-01-07 23:17 | PTCARENOTE ---
Pt received at start of shift, HR SR w/ first degree AV block. R groin dressing CDI, soft, no pain. Pt in bed w/ at bedside. Pt updated on plan of care, pt states no further questions at this time. Pt denies CP, SOB, or
lightheadedness/dizziness. Informed to notify RN if any changes.
[2024-01-08 04:50] VITALS: BP 153/81
[2024-01-08 05:17] LABS: Hematocrit 39.6 % (39.0-52.0); Hemoglobin 12.7 g/dL (13.0-18.0); Mean Corp Hgb Conc. 32.1 g/dL (33.0-37.0); Mean Corpuscular Hgb 28.9 pg (27.0-31.0); Mean Platelet Volume 10.5 fL (7.4-10.4); Platelet Count 233 10^3/uL (130-400); Red Cell Dist. Width 15.2 % (11.5-14.5); White Blood Cell Count 11.3 10^3/uL (4.8-10.8)
[2024-01-08 06:00] VITALS: BMI 38.0
[2024-01-08 06:27] LABS: Blood Urea Nitrogen 44 mg/dl (9-20); Calcium 10.7 mg/dl (8.4-10.2); Carbon Dioxide 26 mmol/L (22-30); Chloride 106 mmol/L (98-107); Estimated Creatinine Clearance 52 ml/min; Glucose 110 mg/dl (70-99); Magnesium 2.2 mg/dl (1.6-2.3); Phosphorus 3.6 mg/dl (2.5-4.5); Potassium 4.5 mmol/L (3.5-5.1); Sodium 136 mmol/L (135-145); eGFR 38.42
--- NOTE | 2024-01-08 07:19 | W.PN.HOSP.TC ---
Today's Communication/Plan
-
discharge
Assessment / Plan
Assessment / Plan
Physical Exam
General: No pallor, cyanosis, or jaundice. Obese
HEENT: Throat clear. PERRLA Normocephalic atraumatic, skin growth noted on scalp present for years per patient and , nontender
NECK: Supple. No JVD Carotid Bruits
RESPIRATORY: Lungs clear to auscultation. No crackles wheezes stridor
CVS: S1, S2 normal. RRR. No murmur, rub or gallop.
ABDOMEN: Soft, non-tender. No distension. BS+/normal.
EXTREMITIES: No peripheral cyanosis or edema. s/p Lt AKA and Rt BKA
LUBE WORKER: AOx3
68M PVD Lt AKA Rt BKA CKD III CVA HTn HLD Morbid Obesity Gout HFpEF here for intermittent chest pain troponin elevation EKG changes concerning to NSTEMI
NSTEMI
Cardiology consult appreciated
s/p cath 01/06 severe multivessel disease, successful stenting severe D1 disease
Dual antiplatelet 12 mo
Hypercalcemia
-Consult Nephrology appreciated
-vitamin D wnl
-PTH elevated likely hyperparathyroidism
-calcium trending down
-outpatient follow up with weapons system instrument mechanic recommended
Peripheral Arterial Disease s/p right BKA and left AKA
-Continue Plavix
Essential Hypertension
-Continue clonidine and Toprol-XL
Hyperlipidemia
-Continue rosuvastatin
Diabetes Mellitus, Type II
-A1c 7.9
-Consult life educator for insulin management
-Continue Humulin R U�500
-Monitor sugars and continue coverage insulin
CKD Stage III
- sodium bicarb infusion pre/post cardiac cath as per Nephro
-Monitor creatinine closely
-Monitor I's and O's, and daily weights
-Continue Kerendia
-resume home oral bicarb when infusion completes.
Morbid Obesity due to Excess Calories
-Affects all aspects of care
DVT proph: Heparin
Code Status: Full Code
Medically stable for discharge home with outpatient follow up recommendations.
I spent a total of 54 minutes with the patient or on the floor. More than 50% of this time involved counseling and coordination of care.
Anticipated Discharge: Today
Subjective/Interval History
-
Date of Service: January 08, 2024
No acute distress. Reports feeling well. eager to go home.
Objective Data
-
Labs:
Laboratory Results
01/08/24
04:56
WBC 11.3 H
Hgb 12.7 L
Hct 39.6
Plt Count 233
Sodium 136
Potassium 4.5
Chloride 106
Carbon Dioxide 26
BUN 44 H
Creatinine 1.9 H
Glucose 110 H
Calcium 10.7 H
Vital Signs:
Vital Signs
Temp Pulse Resp BP Pulse Ox
97.9 F 54 18 153/81 98
01/08/24 04:50 01/08/24 05:45 01/08/24 04:50 01/08/24 04:50 01/08/24 04:50
I&O
01/07/24 01/08/24 01/09/24
06:59 06:59 06:59
Intake Total 240 / 240 1180 / 1180 240 / 240
Output Total 1150 / 1150 500 / 500 450 / 450
Balance -910 / -910 680 / 680 -210 / -210
[2024-01-08 07:41] VITALS: BP 168/82
[2024-01-08 07:45] LABS: Glucose - Point of Care 113 mg/dl (70-99)
[2024-01-08] MEDS: IMDUR (EXTENDED RELEASE) 30 MG PO (08:11)
[2024-01-08] MEDS: PLAVIX 75 MG PO (08:11)
[2024-01-08] MEDS: LOW STRENGTH ASPIRIN 81 MG PO (08:11)
[2024-01-08] MEDS: CATAPRES 0.100000000000000006 MG PO (08:11)
[2024-01-08] MEDS: TOPROL XL PO (08:12)
[2024-01-08] MEDS: HEPARIN 5000 UNITS SC (08:12)
[2024-01-08] MEDS: HUMULIN R U-500 (CONCENTRATED) 200 UNITS SC (08:13)
[2024-01-08 10:17] LABS: Intact PTH 147.6 pg/ml (13.6-85.8)
[2024-01-08 11:13] VITALS: BP 145/74
--- NOTE | 2024-01-08 12:13 | W.PN.CD ---
Addendum entered and electronically signed by Seth Babb MD 01/08/24 14:22:
I saw and examined the patient.
The ELECTRONIC FUNDS TRANSFER COORDINATOR's note was reviewed and I agree with the note.
Comment: Patient with complaint. He would like to go home today. No chest pain or shortness of breath. He has a regular rate and rhythm with a normal S1-S2 no murmurs gallops were appreciated. Lungs clear to auscultation bilaterally. His
is at the bedside, and we discussed the importance of dual antiplatelet therapy without interruption for 1 year given his non-STEMI. He understands. Continue beta-alicia, heart rate at rest of 50 to 60s ideal. Continue statin. Follow-up in our
office with Dr. Cervantes will be arranged. Recommendations discussed with Dr. Lamb.
Original Note:
Today's Communication / Plan
-
post PCI instructions reviewed.
now on ASA/Plavix post KANE.
continue Toprol 100mg daily.
Impression / Plan
-
NSTEMI - initial troponin 0.579 with chest pressure for 2-3 weeks.
- peak troponin 17.
- s/p cath with multivessel CAD poorly suited for CABG so he is s/p PCI/KANE of severe DI disease 01/07/24.
- continue Plavix, add ASA.
PAD - s/p right BKA and left AKA.
- on Plavix managed by Dr. Anton.
HTN - stable on outpatient meds, continue.
HLD - stable on Crestor with LDL 47 09/2023.
- continue Crestor.
CKD3b - stable creatinine.
- managed by Dr. Colunga as outpatient.
IDDM - continue insulin, per primary.
HFpEF - stable, EF 50-55%.
- not in overt HF on exam.
- he does not weigh himself at home due to right BKA and left AKA he is unable to stand.
- monitor.
Physical Exam
Vital Signs/Labs
Vital Signs
Temp Pulse Resp BP Pulse Ox
97.9 F 64 18 145/74 95
01/08/24 11:48 01/08/24 11:15 01/08/24 11:48 01/08/24 11:13 01/08/24 11:48
01/07/24 01/08/24 01/09/24
06:59 06:59 06:59
Actual Weight 126.2 kg 126.9 kg
01/08/24 04:56
01/08/24 04:56
PT 14.4 Sec (11.4-14.6) 01/06/24 22:59
INR 1.11 01/06/24 22:59
APTT Cancelled 01/07/24 12:00
Magnesium 2.2 mg/dl (1.6-2.3) 01/08/24 04:56
LAB Results
01/06/24 01/06/24 01/06/24
13:59 18:16 22:59
Troponin I 0.579 H* 8.080 H* D 17.200 H* D
01/07/24 01/07/24
00:00 05:15
Troponin I Cancelled 15.000 H*
Physical Exam
Constitutional: No acute distress and Comfortable
EENT: Anicteric and Moist mucous membranes
Cardiovascular: Rhythm & rate is regular
Respiratory: Respiratory effort normal
GI: Soft, Non tender and Normal bowel sounds
Neuro/Psych: AO x 3
Other: Skin (warm, dry) and Cath Site (right femoral site intact, no bruit/hematoma )
Data Reviewed
-
Date of Service: January 08, 2024
Medical Decision Making: External Notes and Reviewed Test Results
EKG: Tracing Personally Visualized and interpreted
Echo: Report Reviewed by me
Labs: Labs Reviewed by me
Old Records: Reviewed
[2024-01-08] MEDS: TOPROL XL 100 MG PO (12:20)
[2024-01-08 12:56] LABS: Glucose - Point of Care 145 mg/dl (70-99)
--- NOTE | 2024-01-08 14:02 | W.DCSUMMARY ---
Discharge Summary
Discharge Data
Date of Admission: 01/06/24
Date of Discharge: 01/08/24
-
Pending Results: No
Hospital Course
68M PVD Lt AKA Rt BKA CKD III CVA HTn HLD Morbid Obesity Gout HFpEF here for intermittent chest pain troponin elevation EKG changes concerning for NSTEMI. Cardiology evaluated with cath 01/06 showing severe multivessel disease, successful stenting
severe D1 disease performed. Dual antiplatelet 12 mo was recommended
Hypercalcemia was evaluate by Nephrology during stay. Prophylactic bicarb gtt was also provided for cath as per nephro due to chronic kidney disease. Vitamin D wnl. PTH elevated likely hyperparathyroidism. Calcium trended down during stay.
Outpatient follow up with wood and wood products factory worker was recommended. Medically stable, patient was discharged home with outpatient follow up recommendations.
Discharge Plan
-
Patient Disposition: Home with Home Care
Discharge Diagnosis/Procedures: NSTEMI, s/p angioplasty and stent to Diagonal artery, Hyperparathyroidism, Hypercalcemia resolving
Condition: Fair
Diet: Diabetic, Carb Controlled
Activity: As tolerated
Driving Restrictions: No driving
Bathing Restrictions: None
Blood Work: Please repeat CBC and BMP with primary care provider in 1 week of discharge.
Other Services: Cardiac Rehab
Specialty Instructions: Weigh Daily- Call MD for wt gain/loss 3 lbs overnight/5 lbs in 1 week
Activity Restrictions/Additional Instructions:
Please follow up with primary care provider in 1 week of discharge, nephrology and Endocrinology in 2 weeks of discharge (referral for Endocrinology has been provided if you are not currently following with an Corporate Training Manager). Keep your
appointment with Cardiology
Please follow up with Endocrinology and Nephrology for further work up evaluation Hyperparathyroidism.
aspirin has been prescribed for dual antiplatelet recent stent placement for NSTEMI. It is recommended that you continue with dual antiplatelet aspirin and plavix for 12 months, one year. Please follow up with cardiology or your primary care
provider before discontinuing aspirin.
Please take medications as prescribed/recommended and follow up with primary care provider and/or other healthcare provider involved in your care for refills and/or further adjustment to your medication regimen as necessary.
Stand Alone Forms: DC Instructions- Cath/EP Lab
Referrals:
[facility], visiting nurse [Other] ( )
Ketty Hummel NP [Specified Professional Personl] - 01/24/24 2:40 pm (Cardiology followup appointment)
Renetta Delgado MD [Consulting Staff] - in two weeks
Gretta Colunga MD [Active] - in two weeks
Geoffrey Maya DO [Family Provider] - in one week
Prescriptions:
New
aspirin [Children's Aspirin] 81 mg Tablet,Chewable
81 mg PO DAILY 30 Days Qty: 30 0RF
Continued
torsemide 5 MG tablet
5 mg PO DAILY
metoprolol succinate [Toprol XL] 100 MG tablet extended release 24 hr
100 mg PO DAILY
isosorbide mononitrate 30 mg tablet extended release 24 hr
30 mg PO DAILY
Kerendia 10 mg Tablet
10 mg PO DAILY
sodium bicarbonate 650 mg tablet
1,300 mg PO BID
Humulin R U-500 (Conc) Kwikpen 500 unit/mL (3 mL) insulin pen
200 unit SC DAILY
Humulin R U-500 (Conc) Kwikpen 500 unit/mL (3 mL) insulin pen
50 unit SC DAILY@1730
docusate sodium [Colace] 100 mg Capsule
100 mg PO DAILYPRN PRN (Reason: constipaiton)
multivitamin Tablet
1 tab PO DAILY
acetaminophen 325 mg Tablet
650 mg PO Q6H PRN (Reason: pain)
lidocaine [Blue-Emu Lidocaine Patch] 4 % Adhesive Patch,Medicated
1 patch TOPICAL DAILY PRN (Reason: prosthetic leg pain)
Desitin Daily Defense 13 % Cream
1 applic TOPICAL DAILYPRN PRN (Reason: bed sores)
allopurinol 100 MG tablet
100 mg PO DAILY
clonidine HCl 0.1 MG tablet
0.1 mg PO BID@0800,1700 Qty: 60 0RF
clopidogrel 75 MG tablet
75 mg PO DAILY Qty: 30 0RF
rosuvastatin 40 MG tablet
40 mg PO QPM Qty: 30 0RF
Discharge Orders:
Discharge Patient (As Directed); Ordered 01/08/24
Ordered By: Leatha Lamb
Discharge Date and Time
Discharge Date/Time: 01/08/24 15:40
Print Language: LIBERIAN
--- NOTE | 2024-01-08 14:20 | PTCARENOTE ---
The patient is using his own wheelchair van service for discharge.
--- NOTE | 2024-01-08 15:13 | W.PN.NEPH.PH ---
Today's Communication / Plan
-
see plan
Assessment/Plan
-
Impression:
CKD stage IIIb with baseline creatinine of 1.7
Non-ST elevation KS
Obesity
History of coronary artery disease
History of stroke
Diabetes with multiple microvascular complication
Multidrug resistant hypertension
Gout
Congestive heart failure with preserved EF
PAD with bilateral lower extremity amputations
Chronic metabolic acidosis on sodium bicarbonate
Plan:
CKD 3b in setting of NSTEMI: s/p cath 01/06 with MVD, s/p KANE of D1 branch
cr slightly up but overall stable 1.9 since admit
completed preventive IVF
resume Torsemide in 1-2days after d/c based on wt and symp
BP stable
-Maintain oral sodium bicarbonate
chr hypercalcemia-PTH pending, normal vit D level, monitor level
BMP on Wednesday , results to cards and Dr schulz
f/u nephro
d/w pt and nursing
-
-
Date of Service: January 08, 2024
CC / HPI / ROS
-
Chief Complaint:
CKD
History of Present Illness:
cr stable at 1.9, calcium at 11.2-better 10.7
BP stable s/p cath with stent D1 brach 01/06
non oliguric
Review of Systems:
no CP or sob
no n/v
Labs
-
Labs:
WBC 11.3 10^3/uL (4.8-10.8) H 01/08/24 04:56
RBC 4.40 10^6/uL (4.70-6.10) L 01/08/24 04:56
Hgb 12.7 g/dL (13.0-18.0) L 01/08/24 04:56
Hct 39.6 % (39.0-52.0) 01/08/24 04:56
Plt Count 233 10^3/uL (130-400) 01/08/24 04:56
Sodium 136 mmol/L (135-145) 01/08/24 04:56
Potassium 4.5 mmol/L (3.5-5.1) 04 04:56
Chloride 106 mmol/L (98-107) 01/08/24 04:56
Carbon Dioxide 26 mmol/L (22-30) 01/08/24 04:56
BUN 44 mg/dl (9-20) H 01/08/24 04:56
Creatinine 1.9 mg/dL (0.7-1.3) H 01/08/24 04:56
eGFR 38.42 01/08/24 04:56
Glucose 110 mg/dl (70-99) H 01/08/24 04:56
Calcium 10.7 mg/dl (8.4-10.2) H 01/08/24 04:56
Phosphorus 3.6 mg/dl (2.5-4.5) 01/08/24 04:56
Albumin 3.9 g/dl (3.5-5.0) 01/06/24 13:59
Physical Exam
-
Vital Signs:
Vital Signs
Temp Pulse Resp BP Pulse Ox
97.9 F 59 18 145/74 95
01/08/24 11:48 01/08/24 14:30 01/08/24 11:48 01/08/24 11:13 01/08/24 11:48
Cardiovascular:: Regular rate and rhythm
Respiratory:: Bilateral: CTA
Lung Excursion:: Normal
Abdomen:: Nontender and Soft
Anton Catheter: No
Other Findings::
Rt BKA, left AKA
== END 2024-01-08 15:40 | disposition home health service (06) | DRG 322 ==
LOC: IVU 17:09
PROVIDERS: Emergency Medicine; Internal Medicine Cardiovascular Disease; Nurse Practitioner; Physician Assistant Medical; ADMITTING PHYSICIAN Internal Medicine; CONSULT PHYSICIAN Internal Medicine; CONSULT PHYSICIAN Specialist; EMERGENCY PHYSICIAN Emergency Medicine; FAMILY PHYSICIAN Internal Medicine
PROC: 027034Z Dilation of Coronary Artery, One Artery with Drug-eluting Intraluminal Device, Percutaneous Approach (ICD-10-PCS; 2024-01-07)
PROC: B2111ZZ Fluoroscopy of Multiple Coronary Arteries using Low Osmolar Contrast (ICD-10-PCS; 2024-01-07)
PROC: 4A023N7 Measurement of Cardiac Sampling and Pressure, Left Heart, Percutaneous Approach (ICD-10-PCS; 2024-01-07)
DX: I21.4 Non-ST elevation (NSTEMI) myocardial infarction (principal); E87.22 Chronic metabolic acidosis; I13.0 Hypertensive heart and chronic kidney disease with heart failure and stage 1 through stage 4 chronic kidney disease, or unspecified chronic kidney disease; I50.32 Chronic diastolic (congestive) heart failure; E11.51 Type 2 diabetes mellitus with diabetic peripheral angiopathy without gangrene; N18.32 Chronic kidney disease, stage 3b; E11.22 Type 2 diabetes mellitus with diabetic chronic kidney disease; K21.9 Gastro-esophageal reflux disease without esophagitis; E78.00 Pure hypercholesterolemia, unspecified; M10.9 Gout, unspecified; I25.10 Atherosclerotic heart disease of native coronary artery without angina pectoris; E66.01 Morbid (severe) obesity due to excess calories; R26.2 Difficulty in walking, not elsewhere classified; I1A.0 Resistant hypertension; E78.1 Pure hyperglyceridemia; E21.3 Hyperparathyroidism, unspecified; I44.0 Atrioventricular block, first degree; I25.2 Old myocardial infarction; Z86.73 Personal history of transient ischemic attack (TIA), and cerebral infarction without residual deficits; Z89.511 Acquired absence of right leg below knee; Z89.612 Acquired absence of left leg above knee; Z79.02 Long term (current) use of antithrombotics/antiplatelets; Z99.3 Dependence on wheelchair; Z79.4 Long term (current) use of insulin
CPT/HCPCS: 80048; 80053; 82306; 82330; 82962; 83036; 83735; 83970; 84100; 84484; 85025; 85027; 85347; 85610; 85730; 93005; 93306; 93454; 96374; 99285; C1725; C1760; C1769; C1874; C1894; C9600; Q9950; Q9967

== ENCOUNTER 2025-09-13 13:53 | Inpatient (IN) | payer MEDICARE, OTHER, SELFPAY ==
[2025-09-13] VITALS (19 sets, daily range): BP systolic 140–197; BP diastolic 61–97
[2025-09-13 12:07] LABS: Hematocrit 45.8 % (39.0-52.0); Hemoglobin 14.7 g/dL (13.0-18.0); Mean Corp Hgb Conc. 32.1 g/dL (33.0-37.0); Mean Corpuscular Volume 90.0 fL (80.0-94.0); Nucleated Red Blood Cells % 0 % (-); Platelet Count 234 10^3/uL (130-400); Red Cell Dist. Width 16.1 % (11.5-14.5)
[2025-09-13 12:28] LABS: ALT (SGPT) 18 U/L (0-50); AST (SGOT) 20 U/L (17-59); Albumin 3.9 g/dl (3.5-5.0); Alkaline Phosphatase 180 U/L (38-126); Blood Urea Nitrogen 41 mg/dl (9-20); Calcium 10.7 mg/dl (8.4-10.2); Carbon Dioxide 19 mmol/L (22-30); Chloride 109 mmol/L (98-107); Glucose 144 mg/dl (70-99); Potassium 4.1 mmol/L (3.5-5.1); Sodium 137 mmol/L (135-145); Total Protein 6.7 g/dl (6.3-8.2); eGFR 46.64
[2025-09-13 12:45] LABS: Troponin I 0.124 ng/ml
[2025-09-13] MEDS: NITRO-BID 1 INCH TOPICAL (12:56)
[2025-09-13] MEDS: LOW STRENGTH ASPIRIN 324 MG PO (12:56)
--- NOTE | 2025-09-13 13:02 | ED.GENMED ---
History of Present Illness
General
Chief Complaint: Blood Pressure Problem
Source: patient
Exam Limitations: none
Time Seen by Provider: 09/13/25 12:43
Nursing documentation reviewed up to this point in time: agreed with
History of Present Illness
History of Present Illness:
70-year-old male with a past medical history as noted significant for CKD, CAD status post stents, bilateral leg amputation, diabetes, hypertension, hyperlipidemia, CHF who presents to the ER accompanied by his for evaluation of chest pressure.
Patient reports symptoms have been intermittent for most a week now�he says that symptoms seem to come on as his isosorbide dinitrate wears off. He says that symptoms have become more intense and persistent today which prompted ER visit. He says
initially he thought his symptoms could be from reflux because he was having some belching associated with it. No nausea, vomiting, abdominal pain. He has not noticed any shortness of breath. He denies any other acute symptoms. He says he did
have similar symptoms with OH in January 2024 requiring stent. His normal ocularist is Dr. Cervantes.
Past History
Past History
ED Past Medical History: CVA (TIA), HTN, Hypercholesterolemia, NIDDM and Other (Gout)
ED Past Surgical History: Other (Catheterization right leg, peroneal vein angioplasty)
Social History
Tobacco: Non-smoker
Alcohol: None
Drug: None
Personal:
Living: with family
Employment: Retired
Family History
Family History: Other (Brother with hiatal hernia)
Review of Systems
Review of Systems
All Other Systems: ROS reviewed and negative except as documented in HPI and ROS
Constitutional: Denies fever
Respiratory: Denies trouble breathing
Cardiac: Reports chest pain; Denies palpitations or syncope
ABD/GI: Denies abdominal pain, nausea or vomiting
: Denies flank pain
Musculoskeletal: Denies neck pain or back pain
Neurological: Denies headache
Phy Exam
Physical Exam
Physical Exam:
General: Awake, alert, oriented x3; no acute distress
Head: Normocephalic, atraumatic
Eyes: Conjunctiva normal, sclera anicteric
Throat: Airway intact, handling secretions
Neck: Trachea midline, no JVD
Lungs: Clear to auscultation bilaterally, no wheezing, rales, rhonchi
Heart: Bradycardia with regular rhythm, no murmurs, gallops, or rubs appreciated
Neuro: Grossly intact
Skin: Warm and dry
Extremities: Right BKA, left AKA; no significant edema or wounds on the stumps
Scores
Heart Failure Risk
Heart Failure Risk Score: Not Applicable
Heart Score for Chest Pain Patients
STEMI patient?: No
History: Moderately Suspicious
ECG: Nonspecific Repolarization
Age: >/= 65 years
Risk Factors: >/= 3 Risk Factors or History of CAD
Troponin: >/= 3 x Normal Limit
Heart Score for Chest Pain Patients: 8
Heart Score Risk: 72.7 % MACE over next 6 weeks
Withdrawal Assessment of Alcohol
Withdrawal Assessment Completed?: Not applicable
Course
Orders/Labs/Results
Orders:
Orders
09/13/25 11:41
Electrocardiogram (*1) Urgent
Reason for Study: Hypertension, Benign
EKG- Treatment ONCE
09/13/25 11:57
Complete Blood Count/With Diff Urgent
Comprehensive Metabolic Panel Urgent
Troponin I Urgent
09/13/25 12:46
Troponin I Urgent
Aspirin Chewable [Low Strength Aspirin] 324 mg PO NOW STA
Nitroglycerin Ointment [Nitro-Bid] 1 inch TOPICAL NOW STA
09/13/25 12:59
CARDIOLOGY CONSULT Urgent
Consulting Provider: Vincent Cervantes
Was physician already notified: Yes
Abnormal Lab Results
09/13/25
11:57
WBC 13.6 H 10^3/uL
(4.8-10.8)
MCHC 32.1 L g/dL
(33.0-37.0)
RDW 16.1 H %
(11.5-14.5)
Absolute Neuts (auto) 10.4 H 10^3/uL
(1.4-6.5)
Absolute Monos (auto) 0.9 H 10^3/uL
(0.1-0.6)
Neutrophils % 76.7 H %
(42.2-75.2)
Lymphocytes % 13.2 L %
(20.5-51.1)
Chloride 109 H mmol/L
(98-107)
Carbon Dioxide 19 L mmol/L
(22-30)
BUN 41 H mg/dl
(9-20)
Creatinine 1.6 H mg/dL
(0.7-1.3)
Glucose 144 H mg/dl
(70-99)
Calcium 10.7 H mg/dl
(8.4-10.2)
Alkaline Phosphatase 180 H U/L
(38-126)
Troponin I 0.124 H* ng/ml
09/13/25 11:57
09/13/25 11:57
Vital Signs
Initial and Last Documented VS:
Initial Vital Signs
Temp Pulse Resp BP Pulse Ox
36.7 C 54 16 186/75 98
09/13/25 11:38 09/13/25 11:38 09/13/25 11:38 09/13/25 11:38 09/13/25 11:38
Last Documented Vital Signs
Temp Pulse Resp BP Pulse Ox
36.7 C 55 16 186/75 99
09/13/25 11:38 09/13/25 12:15 09/13/25 12:15 09/13/25 11:38 09/13/25 12:15
MDM/Problems Addressed
Differential Diagnosis Includes:
ACS, GERD, costochondritis, PE considered less likely clinically
MDM/Problems Addressed:
70-year-old male presents for evaluation of chest pain similar to prior OH. Intermittent for the past few days more persistent today. Hypertensive otherwise acceptable vital signs here. Physical exam as noted. His EKG here shows sinus rhythm no
STEMI (computer read as STEMI but on review his EKG appears similar to prior). Labs sent off including a CBC and a CMP�marginal leukocytosis but no infectious signs or symptoms. Chemistry shows stable CKD. His initial troponin is elevated to
0.124 and overall clinical picture is concerning for ACS/NSTEMI. Treat with nitroglycerin with continued hypertension. Treat with aspirin. IV heparin infusion. Discussed with cardiology for consultation. Discussed with hospitalist for admission.
Chronic conditions affecting care:
CAD, hypertension, hyperlipidemia, obesity
Acute Exacerbation and/or Progression of Chronic Illness:
Acutely hypertensive managed with nitroglycerin
Acute Exacerbation and/or Progression of Chronic Illness: HTN
*Radiology
Radiology exam reviewed: preliminary read by ED provider
*Pulse Oximetry
SaO2: 99
Oxygen Mode of Delivery: Room air
Patient hypoxic: no (99%)
*EKG
Interpreted by ED Provider?: Yes
Heart Rate: 51
Rate: bradycardiac
Rhythm: sinus
*Critical Care Note
Total Time (30-74mins, 75-104mins- exclusive of procedures): Not Applicable
Data Reviewed
Review of Other/Old Records Reveals: Labs and Records
Source: patient, records and spouse
Patient Management
Discussion with other providers: Hospitalist (Discussed with hospitalist) and Box Truck Owner Operator (Discussed with cardiology)
Escalation/DeEscalation of care consider admission/obs:
Admission indicated
ED Attending Note
-
Portions of this chart may have been created with voice recognition software.� Occasional wrong word or��sound alike� substitutions may have occurred due to the inherent limitations of voice recognition software.
Discharge Plan
Departure
Patient Disposition: Admit
Date of Disposition: 09/13/25
Time of Disposition: 13:01
Admit to doctor: [place]
Presentation/result/management discussed w/ accepting MD/DO: Hospitalist
Discharge Problem:
Non-ST elevation OH (NSTEMI)
Prescriptions:
No Action
torsemide 5 MG tablet
5 mg PO DAILY
metoprolol succinate [Toprol XL] 100 MG tablet extended release 24 hr
100 mg PO DAILY
isosorbide mononitrate 30 mg tablet extended release 24 hr
30 mg PO DAILY
Kerendia 10 mg Tablet
10 mg PO DAILY
sodium bicarbonate 650 mg tablet
1,300 mg PO BID
Humulin R U-500 (Conc) Kwikpen 500 unit/mL (3 mL) insulin pen
200 unit SC DAILY
Humulin R U-500 (Conc) Kwikpen 500 unit/mL (3 mL) insulin pen
50 unit SC DAILY@1730
docusate sodium [Colace] 100 mg Capsule
100 mg PO DAILYPRN PRN (Reason: constipaiton)
multivitamin Tablet
1 tab PO DAILY
acetaminophen 325 mg Tablet
650 mg PO Q6H PRN (Reason: pain)
lidocaine [Blue-Emu Lidocaine Patch] 4 % Adhesive Patch,Medicated
1 patch TOPICAL DAILY PRN (Reason: prosthetic leg pain)
Desitin Daily Defense 13 % Cream
1 applic TOPICAL DAILYPRN PRN (Reason: bed sores)
allopurinol 100 MG tablet
100 mg PO DAILY
aspirin [Children's Aspirin] 81 mg Tablet,Chewable
81 mg PO DAILY 30 Days Qty: 30 0RF
clonidine HCl 0.1 MG tablet
0.1 mg PO BID@0800,1700 Qty: 60 0RF
clopidogrel 75 MG tablet
75 mg PO DAILY Qty: 30 0RF
rosuvastatin 40 MG tablet
40 mg PO QPM Qty: 30 0RF
Referrals:
Geoffrey Maya DO [Family Provider, Internal Medicine]
Interventions
Interventions:
*Risk Screen - Suicide Last Done: 09/13/25 11:38
*General Assessment Last Done: 09/13/25 11:38
*Neglect/Abuse Screening Last Done: 09/13/25 11:38
*ED COVID-19 Vaccine History Last Done: 09/13/25 11:38
*ED Influenza Vaccine History Last Done: 09/13/25 11:38
ED- Cardiac Assessment Last Done: 09/13/25 12:07
ED- Neurological Assessment Last Done: 09/13/25 12:07
ED- Pulmonary Assessment Last Done: 09/13/25 12:07
Discharge Date and Time
Print Language: MARTINIQUAIS
--- NOTE | 2025-09-13 13:17 | CON.CAR ---
Addendum entered and electronically signed by Vincent Cervantes MD 09/13/25 15:58:
I saw and examined the patient independently and performed majority of MDM.
The BEATER DUMPER's note was reviewed and I agree with the note with changes/additions below.
Comment: 70 yo male with PMH of complex CAD s/p D1 stent 01/2024, PAD s/p right BKA, left AKA, CKD3a is admitted with mid-sternal chest pressure. Has been having intermittent episodes since the weekend. Currently chest pain free with nitropaste on.
Exam with RRR, no murmurs, clear lungs. TnI 0.129, Cr 1.6. EKG with sinus, and new anterolateral ST changes.
ACS/NSTEMI. Threat to life. ASA 324mg, heparin drip. Plan for cath and echo.
CKD3a. Cr stable at 1.6.
Original Note:
Consultation
Consultation Request
Date/Time Consultation Requested: 09/13/25 1259
Date/Time Consultation Performed: 09/13/25 1317
Requesting Provider: Dr. Young
Performing Provider: Geneva HIDALGO for Dr. Cervantes
Reason for Consultation: NSTEMI
Medical History
-
Chief Complaint: chest discomfort
History of Present Illness:
70 y/o male with CAD s/p NSTEMI with KANE to D1 01/2024 (also severe MV CAD), PAD s/p right BKA, left AKA, hypertension, dyslipidemia, chronic HFpEF, 1st degree AVB, PAC's, DM, CVA 2014, CKD3a, morbid obesity who is here for evaluation of chest
discomfort. This has been intermittent since the weekend and feels like a pressure across his chest. It is similar, but not as bad as his previous anginal pain. At first, he thought it may be indigestion since he was also having belching and gas. It
is worse at night. It can last a few hours at a time. He uses a wheelchair to get around. He has no SOB. Last episode of chest discomfort was last night. He is CP free at time of assessment. EKG shows SB with 1st degree AVB- ST and T abnormality
laterally (change from previous). Troponin is 0.129. He is getting IV heparin, nitropaste, and got full dose aspirin.
Past Medical History
Past Medical History: CAD, CHF, CVA, HTN, Hypercholesterolemia, NIDDM and Other (as above)
Social History
Tobacco: Non-Smoker
Personal:
Family History
Family History: CAD (dad)
Allergies / Home Medications
Allergy/AdvReac Type Severity Reaction Status Date / Time
No Known Drug Allergies Allergy Unknown Verified 09/13/25 11:40
�Medication �Instructions �Recorded �Confirmed �Type
clonidine HCl 0.1 mg tablet 0.1 mg PO BID@0800,1700 #60 tabs 10/22/21 01/06/24 Rx
clopidogrel 75 mg tablet 75 mg PO DAILY #30 tabs 10/22/21 01/06/24 Rx
rosuvastatin 40 mg tablet 40 mg PO QPM #30 tabs 10/22/21 01/06/24 Rx
torsemide 5 mg tablet 5 mg PO DAILY Fluid 12/01/21 01/06/24 History
Retention/Swelling
metoprolol succinate 100 mg 100 mg PO DAILY Heart Failure 12/02/21 01/06/24 History
tablet,extended release 24 hr
(Toprol XL)
isosorbide mononitrate 30 mg 30 mg PO DAILY Heart 06/17/23 01/06/24 History
tablet,extended release 24 hr Disease/Condition
docusate sodium 100 mg capsule 100 mg PO DAILYPRN PRN constipaiton 09/02/23 01/06/24 History
(Colace)
finerenone 10 mg tablet (Kerendia) 10 mg PO DAILY Kidney Disease 09/02/23 01/06/24 History
insulin regular hum U-500 conc 500 50 unit SC DAILY@1730 Diabetes 09/02/23 01/06/24 History
unit/mL(3 mL) subcut pen (Humulin
R U-500 (Conc) Insulin Kwikpen)
insulin regular hum U-500 conc 500 200 unit SC DAILY Diabetes 09/02/23 01/06/24 History
unit/mL(3 mL) subcut pen (Humulin
R U-500 (Conc) Insulin Kwikpen)
sodium bicarbonate 650 mg tablet 1,300 mg PO BID Supplement 09/02/23 01/06/24 History
acetaminophen 325 mg tablet 650 mg PO Q6H PRN pain 09/06/23 01/06/24 History
lidocaine 4 % topical patch 1 patch topical DAILY PRN 09/06/23 01/06/24 History
(Blue-Emu Lidocaine Patch) prosthetic leg pain
multivitamin 1 tab PO DAILY Supplement 09/06/23 01/06/24 History
zinc oxide 13 % topical cream 1 applic topical DAILYPRN PRN bed 01/06/24 01/06/24 History
(Desitin Daily Defense) sores
allopurinol 100 mg tablet 100 mg PO DAILY Gout 01/07/24 01/06/24 History
aspirin 81 mg chewable tablet 81 mg PO DAILY 30 days #30 tabs 01/08/24 Rx
(Children's Aspirin)
Review of Systems
-
History Source: Patient
All other systems: Negative unless noted
Cardiac: Chest Pain
Physical Exam
Vital Signs
Temp Pulse Resp BP Pulse Ox
98.0 F 54 18 186/75 99
09/13/25 11:38 09/13/25 13:00 09/13/25 13:00 09/13/25 11:38 09/13/25 13:08
Lab Results
09/13/25 11:57
09/13/25 11:57
Troponin I 0.124 ng/ml H* 09/13/25 11:57
Physical Exam
General: Well Developed, Well Nourished and No Apparent Distress
HEENT: Normocephalic and Anicteric
Respiratory: Clear and Non Labored Respirations
Cardiac: Regular Rhythm (SB)
Skin: Warm and Dry
Neuro: AO x 3
Psych: Calm
Impression / Plan
-
NSTEMI:
-this diagnosis is threat to life
-patient CP free
-Trop and EKG abnormal as noted- trend trops and EKG's. Check echo now.
-continue IV heparin, which requires intensive monitoring
-on DAPT- reports he took his plavix this AM. Full dose ASA given in ER. Nitropaste placed.
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
CAD:
-last cath 01/07/2024 revealed severe multivessel CAD and patient had successful stenting of severe D1 disease
-on DAPT, statin, BB, imdur. Eval as above.
HFpEF, chronic:
-volume status stable
CKD3A:
-stable, monitor
DM2:
-on meds- management per primary team
HTN:
-elevated on arrival, now improved
PAD with b/l amputations
Data Reviewed
-
EKG: Tracing Personally Visualized and interpreted (EKG shows SB with 1st degree AVB. ST and T abnormality laterally (change from previous))
Radiology: Image Personally Visualized and interpreted (no acute disease of chest on my review- awaiting radiology read)
Medical Tests (Nuc Med, Echo etc): Other (echo ordered; cath reviewed 01/2024: severe MV CAD- see above)
Labs: Labs Reviewed by me
Scores
ALDO for NSTEMI
Age >/= 65: Yes
>/=3 CAD risk factors-HTN,High Chol,Fam hx CAD,DM,Smoker: Yes
Known CAD (stenosis >/=50%): Yes
ASA use in past 7 days: Yes
Severe angina (>/= 2 episodes in 24 hrs): Yes
EKG ST Changes >/= 0.5mm: Yes
Positive cardiac marker: Yes
Score: 7
Risk at 14 days-mortality, new/recurrent MN, severe ischemia: High Risk- 41% Risk at 14 days- all cause mortality, new or recurrent MN, or severe recurrent ischemia requiring urgent revascularization
--- NOTE | 2025-09-13 13:23 | HPS.HSE ---
Addendum entered and electronically signed by Laura Burris MD 09/13/25 17:44:
Held metoprolol due to bradycardia HR 40s.
Original Note:
Family Physician
-
Family Physician: Geoffrey Maya
Chief Complaint
-
chest pain
History of Present Illness
70-year-old male past medical history of CAD, history of NSTEMI status post angioplasty and stent of diagonal artery, HFpEF, PAD status post right BKA, left AKA, hypertension, hyperlipidemia, diabetes, hyperparathyroidism, CKD 3, obesity, CVA, gout,
presenting with intermittent chest pain for the past few days. Chest pain described as pressure like indigestion. Not as bad as when he had NSTEMI last year. Pain did not occur reliably with exertion and seem to correlate with isosorbide dose
wearing off in the day. Pain did not radiate anywhere. Denies any shortness of breath, nausea, dizziness or sweating.
He states that his blood pressures also been as high as 180s in recent times.
He states that blood sugars occasionally been as low as 60s in the past few days usually in the evening time when he does not eat as much. He gets blurry vision at the time but denies any other symptoms with these episodes.
He denies smoking or alcohol or drug use.
Medical History
Past Medical History
Past Medical History: Reports Other (CAD, history of NSTEMI status post angioplasty and stent of diagonal artery, HFpEF, PAD status post right BKA, left AKA, hypertension, hyperlipidemia, diabetes, hyperparathyroidism, CKD 3, obesity, CVA, gout,)
Past Surgical History: Reports Other (Right Below Knee Amputation Left Above Knee Amputation)
Social History
Tobacco: Non-smoker
Alcohol: None
Drug: None
Family History
Family History: Not pertinent
Allergies / Home Medications
Allergies reflects when Allergies were last updated in [facility].
Home Medications with original date entered in [facility]
Allergy/Medication List:
Allergies
Allergy/AdvReac Type Severity Reaction Status Date / Time
No Known Drug Allergies Allergy Unknown Verified 09/13/25 11:40
Home Medications
clonidine HCl 0.1 mg tablet 0.1 mg PO BID@0800,1700 #60 tabs 10/22/21
clopidogrel 75 mg tablet 75 mg PO DAILY #30 tabs 10/22/21
rosuvastatin 40 mg tablet 40 mg PO QPM #30 tabs 10/22/21
torsemide 5 mg tablet 5 mg PO DAILY Fluid Retention/Swelling 12/01/21
metoprolol succinate 100 mg tablet,extended release 24 hr (Toprol XL) 100 mg PO DAILY Heart Failure 12/02/21
isosorbide mononitrate 30 mg tablet,extended release 24 hr 30 mg PO DAILY Heart Disease/Condition 06/17/23
docusate sodium 100 mg capsule (Colace) 100 mg PO DAILYPRN PRN constipaiton 09/02/23
finerenone 10 mg tablet (Kerendia) 10 mg PO DAILY Kidney Disease 09/02/23
insulin regular hum U-500 conc 500 unit/mL(3 mL) subcut pen (Humulin R U-500 (Conc) Insulin Kwikpen) 50 unit SC DAILY@1730 Diabetes 09/02/23
insulin regular hum U-500 conc 500 unit/mL(3 mL) subcut pen (Humulin R U-500 (Conc) Insulin Kwikpen) 200 unit SC DAILY Diabetes 09/02/23
sodium bicarbonate 650 mg tablet 1,300 mg PO BID Supplement 09/02/23
acetaminophen 325 mg tablet 650 mg PO Q6H PRN pain 09/06/23
lidocaine 4 % topical patch (Blue-Emu Lidocaine Patch) 1 patch topical DAILY PRN prosthetic leg pain 09/06/23
multivitamin 1 tab PO DAILY Supplement 09/06/23
zinc oxide 13 % topical cream (Desitin Daily Defense) 1 applic topical DAILYPRN PRN bed sores 01/06/24
allopurinol 100 mg tablet 100 mg PO DAILY Gout 01/07/24
aspirin 81 mg chewable tablet (Children's Aspirin) 81 mg PO DAILY 30 days #30 tabs 01/08/24
Review of Systems
-
History Source: Patient
A 12 point ROS was completed and negative except as noted: Yes
Constitutional: Reports No Symptoms
EENT: Reports No Symptoms
Respiratory: Reports No Symptoms
Cardiac: Reports See HPI
Abdomen/GI: Reports No Symptoms
: Reports No Symptoms
Musculoskeletal: Reports No Symptoms
Skin: Reports No Symptoms
Neurological: Reports No Symptoms
Endocrine: Reports No Symptoms
Hematologic/Lymphatic: Reports No Symptoms
Psych: Reports No Symptoms
Physical Exam
Vital Signs
Vital Signs
Temp Pulse Resp BP Pulse Ox
98.0 F 54 18 186/75 99
09/13/25 11:38 09/13/25 13:00 09/13/25 13:00 09/13/25 11:38 09/13/25 13:08
Physical Exam
General: Well Developed, Well Nourished and No Apparent Distress
HEENT: NormoCephalic, Moist mucous membranes and Atraumatic
Respiratory: Clear
Cardiac: S1/S2 and Regular Rhythm; No Murmur or Rub
GI: Soft, Non Tender, Non Distended and Normal Bowel Sounds; No Organomegaly
Rectal: Deferred by Provider
Musculoskeletal: No Clubbing, No Cyanosis and No Edema
Skin: No Rash
Neuro: Nonfocal/grossly intact
Laboratory Results
-
09/13/25 11:57
09/13/25 11:57
Laboratory Results
Total Bilirubin 0.6 mg/dl (0.2-1.3) 09/13/25 11:57
AST 20 U/L (17-59) 09/13/25 11:57
ALT 18 U/L (0-50) 09/13/25 11:57
Alkaline Phosphatase 180 U/L (38-126) H 09/13/25 11:57
Troponin I 0.124 ng/ml H* 09/13/25 11:57
Data Reviewed
-
Lab Data: Labs Reviewed by me
Old Records: Reviewed
Impression/Plan
-
IMPRESSION:
PLAN:
# Possible NSTEMI
#History of CAD/NSTEMI status post angioplasty and stent of diagonal artery in January 2024
-No chest pain currently
-EKG shows sinus bradycardia with first-degree AV block, nonspecific ST-T wave changes, possible ST elevation in V1
-Troponin 0.124, continue to trend
- Continue aspirin and Plavix
- heparin drip
- Continue isosorbide mononitrate
- Continue metoprolol
- Cardiology consulted
# Hypertensive emergency
- Blood pressure improved to 140
- As needed hydralazine
Chronic HFpEF
- Continue torsemide
PAD status post right BKA/left AKA
Essential hypertension
- Continue clonidine
Hyperlipidemia
Type 2 diabetes
- Continue Humulin to 220 units in the morning, 70 in the evening
Hyperparathyroidism
CKD 3
-Renal function at baseline
- Continue sodium bicarbonate
- Continue Kerendia
Obesity
History of CVA
- Continue statin
Gout
- Continue allopurinol
Full code
DVT prophylaxis�heparin drip
Cardiac diet
[2025-09-13] MEDS: HEPARIN 4000 UNITS IV (13:28)
[2025-09-13] MEDS: HEPARIN 25000 UNITS/250 ML IV ×2 (13:28→23:21)
[2025-09-13 13:38] LABS: APTT 28.1 Sec (23.4-35.0)
[2025-09-13 13:41] LABS: Troponin I 0.129 ng/ml
--- NOTE | 2025-09-13 15:39 | CARDSERVDEF ---
Echocardiogram with Definity completed after protocol screening completed. Allergies verified.
Patent IV site: Right arm 18 G PC site clear
IV site flushed with 0.9% NaCl pre and post administration.
Diluted bolus method utilized to enhance visualization of ventricular kiran.
Total volume given: _7___ mL
Patient tolerated all procedures well without complications.
--- NOTE | 2025-09-13 17:15 | ITS.CL.PN ---
[facility] - Procedure Note
Procedure
Procedure Note:
CARDIAC CATHETERIZATION REPORT
Date of Procedure: 09/13/2025
Referring: Dr. Trell Cervantes MD, PhD
Indication: NSTEMI
PROCEDURE(S)
1. left heart catheterization
2. coronary angiography
ACCESS: 6F right common femoral artery (closure: Angioseal x1)
CATHETERS
1. 6F JR4
2. 6F JL4
MODERATE SEDATION: 25 minutes of moderate sedation was utilized. An independent medical auditor was present to assist with and help manage the patient's level of consciousness and physiologic status.
HEMODYNAMIC DATA
LV 188/19 (EDP 25 with a-wave to 35) mmHg
AO 183/76 (mean 113) mmHg
CORONARY ANGIOGRAPHY
Dominance: right
LM: Large, with minimal disease
LAD: Large vessel giving rise to a moderate caliber branching D1 (which itself gives rise to two small inferior branches), small D2, and small D3 before wrapping around the apex. The mid to distal LAD, D2, and D3 are atretic with diffuse
moderate-severe disease not amenable to percutaneous revascularization. There is a 2.5x30 mm stent in the D1 extending from the D1 ostium distally and jailing both of the inferior branches. There is focal severe ISR of the D1 stent in two locations:
ostially and between the two inferior branches. There is TIMI3 flow distally in all branches.
LCx: Moderate caliber vessel giving rise to a single moderate caliber OM branch. There is an ostial 99% stenosis with ALDO I flow distally. Though poorly seen, there is a known subtotal occlusion in the mid body of the OM1.
RCA: Large vessel giving rise to a moderate caliber RPDA and two small RPL branches. There is a focal 60% stenosis in the proximal aspect of the RPDA visually unchanged from 2023 angiography.
RADIATION: dose 697 mGy; DAP 45 Gy*cm2; fluoroscopy time 2.5 min
CONCLUSION: Severe coronary artery disease as described. The culprit for the patient's presentation is most likely the ostial LCx, the only significant branch of which was already subtotally occluded in 2023. Thus, I see no benefit to
revascularizing this territory. The severe ISR of the D1 may also be a culprit lesion, but is a very poor target for repeat PCI given the rapid ISR, long and narrow stent, ostial location, and multiple jailed branches at risk for closure. The LAD
itself has severe mid-distal disease, but the mid-proximal vessel is non obstructive and stable from prior. Thus, I do not think there is a role for surgical revascularization as the LAD would not be a target. Recommended approach is to optimize
medical therapy for angina and CAD. If residual symptoms remain despite optimal medical therapy, would refer patient for drug coated balloon angioplasty of the diagonal at [place]. Otherwise, treat medically for NSTEMI with 48 hours heparin. Cont. DAPT
with ASA/Plavix and consider extended duration DAPT given severity of disease.
Copy to: Dr. Trell Cervantes MD, PhD (location worker); Dr. Geoffrey Maya MD (PCP)
Signed: Prateek Martinez MD, PhD
--- NOTE | 2025-09-13 17:39 | PTCARENOTE ---
Patient received from technology lab teacher. Right femoral dressing dry and intact. AO x 3, glasses. SB hr 52, bp 151/86, 97% room air. Rash under left breast. right BKA and left AKA, legs warm to touch, Doppler pulse. HOB flat, at bedside
[2025-09-13 18:00] LABS: Glucose - Point of Care 70 mg/dl (70-99)
[2025-09-13 19:04] LABS: APTT 28.7 Sec (23.4-35.0)
[2025-09-13] MEDS: HUMULIN R U-500 (CONCENTRATED) 70 UNITS SC (19:09)
[2025-09-13] MEDS: CRESTOR 40 MG PO (19:12)
[2025-09-13] MEDS: ZYLOPRIM 100 MG PO (19:12)
[2025-09-13 19:22] LABS: Troponin I 0.159 ng/ml
--- NOTE | 2025-09-13 19:47 | PTCARENOTE ---
Received pt from day shift RN at 1900. Pt in bed, remains flat post procedure until 194. Aox4, VSS, SB Hr 40-50s, occasional PVCs. R fem groin site, CDI, no bleeding or hematoma. Doppler popliteal pulses. Plan to resume heparin at 2300. See
flowsheet for further documentation.
[2025-09-13] MEDS: DESENEX/MITRAZOL/ZEASORB 1 APPLIC TOPICAL (23:20)
[2025-09-14] VITALS (11 sets, daily range): BP systolic 104–188; BP diastolic 47–96
[2025-09-14 00:10] LABS: Troponin I 0.166 ng/ml
[2025-09-14] MEDS: APRESOLINE 10 MG IV (02:49)
[2025-09-14] MEDS: NITRO-BID 1 INCH TOPICAL (04:55)
[2025-09-14 05:14] LABS: Hematocrit 45.6 % (39.0-52.0); Hemoglobin 14.6 g/dL (13.0-18.0); Mean Corp Hgb Conc. 32.0 g/dL (33.0-37.0); Mean Corpuscular Volume 90.3 fL (80.0-94.0); Nucleated Red Blood Cells % 0 % (-); Platelet Count 222 10^3/uL (130-400); Red Cell Dist. Width 16.1 % (11.5-14.5)
[2025-09-14 05:21] LABS: APTT 34.7 Sec (23.4-35.0)
[2025-09-14 05:35] LABS: ALT (SGPT) 16 U/L (0-50); AST (SGOT) 18 U/L (17-59); Albumin 3.4 g/dl (3.5-5.0); Alkaline Phosphatase 162 U/L (38-126); Blood Urea Nitrogen 33 mg/dl (9-20); Calcium 10.8 mg/dl (8.4-10.2); Carbon Dioxide 19 mmol/L (22-30); Chloride 110 mmol/L (98-107); Glucose 140 mg/dl (70-99); HDL Cholesterol 35 mg/dl; LDL Cholesterol, Calculated 29 mg/dl; Potassium 3.9 mmol/L (3.5-5.1); Sodium 137 mmol/L (135-145); Total Protein 6.2 g/dl (6.3-8.2); Very Low Density Lipoprotein 20 mg/dl (0-30); eGFR 54.75
[2025-09-14 05:49] LABS: Troponin I 0.161 ng/ml
--- NOTE | 2025-09-14 05:59 | PTCARENOTE ---
Pt reports 3/10 chest pain around 0345. Covering LONG DISTANCE OPERATOR made aware, nitro paste ordered and applied to r chest wall. Pt reports CP seems to be improving slightly.
--- NOTE | 2025-09-14 07:55 | PTCARENOTE ---
Assumed care of pt from prev nsg shift; Pt AAOx3 & denies CP or SOB this morning. Pt's VSS w/HR in the 50's and BP 174/87 this AM. Pt is SB w/occas PVC's on telemetry monitoring. Pt w/R groin site w/dressing C/D/I & no signs or symptoms of bleeding
or hematoma. Pt w/call murguia within reach & no addtl needs at this time. Plan of care ongoing.
[2025-09-14 08:34] LABS: Glucose - Point of Care 158 mg/dl (70-99)
[2025-09-14] MEDS: NOVOLOG FLEXPEN-LOW RESISTANCE 1 UNITS SC ×2 (08:44→12:41)
[2025-09-14] MEDS: HUMULIN R U-500 (CONCENTRATED) 220 UNITS SC (08:45)
--- NOTE | 2025-09-14 09:24 | W.PN.HOSP.TC ---
Today's Communication/Plan
-
Increase clonidine
lower the dose of BB
c/w IV Heparin gtt
Imdur
Assessment / Plan
Assessment / Plan
Physical Exam
General: Well Developed, Well Nourished and No Apparent Distress. Obese.
HEENT: Normocephalic, Moist mucous membranes and Atraumatic
Respiratory: Clear
Cardiac: S1/S2
GI: Soft, Non Tender, Non Distended and Normal Bowel Sounds;
Musculoskeletal: No Clubbing, No Cyanosis and No Edema. s/p right BKA/left AKA
Neuro: AAOX3. Followed commands.
Psych: calm
A/P:
# NSTEMI
#History of CAD/NSTEMI status post angioplasty and stent of diagonal artery in January 2024
-No chest pain currently but had recurrent pain over night
[facility] showed severe CAD,.
- Continue aspirin and Plavix
- heparin drip X 48 hours.
- Continue isosorbide mononitrate
- Continue metoprolol & Statin
- Cardiology help appreciated
# Simus bradycardia
Lower dose of BB
# Leukocytosis, reactive
Afebrile
# Hypertensive emergency
- Blood pressure improved to 140
- As needed hydralazine
Chronic HFpEF
- Continue torsemide
PAD status post right BKA/left AKA
#Essential hypertension
uncontrolled
- increase dose of clonidine
Hyperlipidemia
Type 2 diabetes
- Continue Humulin to 220 units in the morning, 70 in the evening
Hyperparathyroidism with mild hypercalcemia
Calcium at 10.8
CKD 3b
-Renal function at baseline
- Continue sodium bicarbonate
- Continue Kerendia
Obesity
History of CVA
- Continue statin
Gout
- Continue allopurinol
Full code
DVT prophylaxis�heparin drip
Cardiac diet
Total time spent to see the patient, examined the patient, reviewed data and lab result, discuss treatment plan with patient, nursing staff around 55 minutes
Anticipated Discharge: > 48 hours
Subjective/Interval History
-
Date of Service: September 14, 2025
Had chest pain over night, not currently
No sob
No fevers
Objective Data
-
Labs:
Laboratory Results
09/14/25 09/14/25
05:00 11:45
WBC 14.1 H
Hgb 14.6
Hct 45.6
Plt Count 222
APTT 34.7 Pending
Sodium 137
Potassium 3.9
Chloride 110 H
Carbon Dioxide 19 L
BUN 33 H
Creatinine 1.4 H
Glucose 140 H
Calcium 10.8 H
Total Bilirubin 0.6
AST 18
ALT 16
Alkaline Phosphatase 162 H
Vital Signs:
Vital Signs
Temp Pulse Resp BP Pulse Ox
98.0 F 56 17 174/87 97
09/14/25 07:38 09/14/25 08:45 09/14/25 07:38 09/14/25 08:00 09/14/25 07:38
I&O
09/13/25 09/14/25 09/15/25
06:59 06:59 06:59
Intake Total 60 / 60
Output Total 1425 / 1425
Balance -1365 / -1365
--- NOTE | 2025-09-14 10:10 | W.PN.CD ---
Today's Communication / Plan
-
continue heparin drip for another 24 hrs, with monitoring of tele, Hgb
cont ASA/Plavix
change Toprol 100mg to coreg 25mg bid for better BP control
increase imdur to 60mg daily
Impression / Plan
-
NSTEMI:
-this diagnosis is threat to life
-echo 09/13: EF 60-65%, no sig valve disease
-cath report reviewed, summarized below: plan is med mgmt
-to consider drug coated balloon angioplasty of the diagonal at [place] if med mgmt fails
-continue heparin drip for another 24 hrs, with monitoring of tele, Hgb
-cont ASA/Plavix
-change Toprol 100mg to coreg 25mg bid for better BP control
-increase imdur to 60mg daily
CAD: severe
-cont med mgmt
HFpEF, chronic:
-volume status stable: continue torsemide, finerenone, farxiga
CKD3A:
-stable, monitor
DM2:
-on meds- management per primary team
HTN:
-elevated: trend with med changes above
PAD with b/l amputations
Cath 09/13/25
' Severe coronary artery disease. The culprit for the patient's presentation is most likely the ostial LCx, the only significant branch of which was already subtotally occluded in 2023. Thus, I see no benefit to revascularizing this territory. The
severe ISR of the D1 may also be a culprit lesion, but is a very poor target for repeat PCI given the rapid ISR, long and narrow stent, ostial location, and multiple jailed branches at risk for closure. The LAD itself has severe mid-distal disease,
but the mid-proximal vessel is non obstructive and stable from prior. Thus, I do not think there is a role for surgical revascularization as the LAD would not be a target. Recommended approach is to optimize medical therapy for angina and CAD. If
residual symptoms remain despite optimal medical therapy, would refer patient for drug coated balloon angioplasty of the diagonal at [place]. Otherwise, treat medically for NSTEMI with 48 hours heparin. Cont. DAPT with ASA/Plavix and consider extended
duration DAPT given severity of disease.'
Physical Exam
Vital Signs/Labs
Vital Signs
Temp Pulse Resp BP Pulse Ox
98.0 F 56 17 174/87 97
09/14/25 07:38 09/14/25 08:45 09/14/25 07:38 09/14/25 08:00 09/14/25 07:38
09/13/25 09/14/25 09/15/25
06:59 06:59 06:59
Actual Weight 138.2 kg
09/14/25 05:00
09/14/25 05:00
APTT 34.7 Sec (23.4-35.0) 09/14/25 05:00
Triglycerides 103 mg/dl (10-149) 09/14/25 05:00
LDL Cholesterol, Calc 29 mg/dl 09/14/25 05:00
VLDL Cholesterol, Calc 20 mg/dl (0-30) 09/14/25 05:00
HDL Cholesterol 35 mg/dl 09/14/25 05:00
LAB Results
09/13/25 09/13/25 09/13/25
11:57 13:01 18:48
Troponin I 0.124 H* 0.129 H* 0.159 H*
09/13/25 09/14/25
23:16 05:00
Troponin I 0.166 H* 0.161 H*
Physical Exam
Constitutional: No acute distress and Comfortable
EENT: Moist mucous membranes
Cardiovascular: Rhythm & rate is regular, JVD pressure is normal and Systolic murmur absent
Respiratory: Respiratory effort normal and Lungs clear to auscul.
Neuro/Psych: AO x 3
Data Reviewed
-
Date of Service: September 14, 2025
EKG: Other (Tele: SB 50s)
Echo: Report Reviewed by me
Medical Tests (PFT, Pathology etc): Report Reviewed by me (cardiac cath)
Labs: Labs Reviewed by me
[2025-09-14] MEDS: PLAVIX 75 MG PO (10:15)
[2025-09-14] MEDS: DEMADEX 10 MG PO (10:17)
[2025-09-14] MEDS: FARXIGA 10 MG PO (10:18)
[2025-09-14] MEDS: ASPIR LOW (ENTERIC COATED) 81 MG PO (10:18)
[2025-09-14] MEDS: DESENEX/MITRAZOL/ZEASORB 1 APPLIC TOPICAL ×2 (10:18→20:36)
[2025-09-14] MEDS: THERAGRAN 1 TABLET PO (10:18)
[2025-09-14] MEDS: CATAPRES 0.1 MG PO (10:19)
[2025-09-14] MEDS: IMDUR (EXTENDED RELEASE) 30 MG PO ×2 (10:19→10:20)
[2025-09-14 11:05] LABS: Glycohemoglobin (HgbA1c) 7.0 % (4.0-5.9)
[2025-09-14 11:36] LABS: Glucose - Point of Care 192 mg/dl (70-99)
--- NOTE | 2025-09-14 12:03 | CM ---
Reviewed chart. Met with and Mrs. Andrade to review discharge plans. He states prior to admission he resides with his spouse in a spilt level home with a ramp to enter the home. He states he stays on the lower level. He states he uses a sliding
board to transfer. He states he has be able to transfer. He states he uses a wheelchair for mobility. He states he can do part of his ADL's and his spouse assists him as needed. He states he has a eclectic wheelchair, wheelchair, sliding board,
and Bedside commode/ He states he has been in [facility] and [facility] for the rehab in the past. He states he has uses [facility] in the past. We reviewed [facility] and at this time he is declining [facility] Services. He states he has a
prescription plan and uses [facility] at [facility]. He states he has a handicap wheelchair that can take him home. Medical work-up in progress. The discharge plan is to return home with his spouse when medically stable.
[2025-09-14 12:12] LABS: APTT 41.4 Sec (23.4-35.0)
[2025-09-14] MEDS: COREG 25 MG PO (12:40)
[2025-09-14 18:08] LABS: Glucose - Point of Care 134 mg/dl (70-99)
[2025-09-14] MEDS: HUMULIN R U-500 (CONCENTRATED) 70 UNITS SC (18:12)
[2025-09-14] MEDS: HEPARIN 25000 UNITS/250 ML IV (18:14)
[2025-09-14] MEDS: NOVOLOG FLEXPEN-LOW RESISTANCE SC (18:17)
[2025-09-14] MEDS: CRESTOR 40 MG PO (18:17)
[2025-09-14] MEDS: ZYLOPRIM 100 MG PO (18:17)
[2025-09-14] MEDS: CATAPRES 0.2 MG PO (18:18)
[2025-09-14 19:30] LABS: APTT 46.4 Sec (23.4-35.0)
--- NOTE | 2025-09-14 20:23 | PTCARENOTE ---
Patient received from RN @ 1900. Patient sitting in chair w/ call murguia in reach. AOx3. Pleasant and cooperative. SR on monitor. BP 124/79 HR 85. Heart sounds audible. Radial and pedal pulses present. No edema noted. POX 100% 2L NC. Right
lateral CT set to -20 suction draining serosanguineous fluid. +1 air leak noted. No crepitus or tidaling. Lung sounds decreased in right base. Bowel sounds normoactive. Voiding clear yellow urine. PIV patent and intact. CT dressing and
surgical sites C/D/I. See worklist for more details.
[2025-09-14] MEDS: COREG PO (20:37)
--- NOTE | 2025-09-14 21:08 | PTCARENOTE ---
Patient received from RN @ 1900. Patient lying in bed w/ call murguia in reach. AOx3. Sinus bradycardia on monitor. BP 111/47 HR 56. Heart sounds audible but distant. Patient denies chest pain. Radial pulses present. Right popliteal pulse
present on Doppler. POX 94% RA. Deep breathing encouraged. Lungs diminished in bases. Bowel sounds hypoactive. Voiding clear yellow urine in urinal. PIV patent and intact. Right groin dressing C/D/I. Heparin drip infusing per protocol. See
worklist and MAR for details.
[2025-09-14 22:11] LABS: Glucose - Point of Care 139 mg/dl (70-99)
[2025-09-15 00:36] VITALS: BP 125/65
[2025-09-15 02:50] LABS: Hematocrit 41.0 % (39.0-52.0); Hemoglobin 13.3 g/dL (13.0-18.0); Mean Corp Hgb Conc. 32.4 g/dL (33.0-37.0); Mean Corpuscular Volume 90.3 fL (80.0-94.0); Platelet Count 206 10^3/uL (130-400); Red Cell Dist. Width 16.2 % (11.5-14.5)
[2025-09-15 03:02] LABS: APTT 65.8 Sec (23.4-35.0)
[2025-09-15 04:40] LABS: Glucose - Point of Care 63 mg/dl (70-99)
--- NOTE | 2025-09-15 04:41 | PTCARENOTE ---
Patient personal continuous glucometer was reading low. Blood sugar checked and result 63. 4oz of fruit juice given. Will check blood sugar in 15 minutes. See worklist for more details.
[2025-09-15 04:59] VITALS: BP 131/62
[2025-09-15 04:59] LABS: Glucose - Point of Care 74 mg/dl (70-99)
[2025-09-15 08:07] VITALS: BP 159/64
--- NOTE | 2025-09-15 08:30 | PTCARENOTE ---
Assumed care of pt from prev nsg shift; Pt AAOx3 & denies CP or SOB this morning. Pt's VSS w/HR in the 50's and BP 159/64 this AM. Pt is SB w/occas PVC's & 1 deg AVB on telemetry monitoring. Pt w/R groin site w/dressing C/D/I & no signs or symptoms
of bleeding or hematoma. Pt w/call murugia within reach & no addtl needs at this time. Plan of care ongoing.
[2025-09-15] MEDS: CATAPRES 0.2 MG PO (08:38)
[2025-09-15] MEDS: THERAGRAN 1 TABLET PO (08:38)
[2025-09-15] MEDS: PLAVIX 75 MG PO (08:38)
[2025-09-15] MEDS: COREG 25 MG PO (08:38)
[2025-09-15] MEDS: ASPIR LOW (ENTERIC COATED) 81 MG PO (08:38)
[2025-09-15] MEDS: FARXIGA 10 MG PO (08:38)
[2025-09-15] MEDS: IMDUR (EXTENDED RELEASE) 60 MG PO (08:38)
[2025-09-15] MEDS: DEMADEX 10 MG PO (08:38)
[2025-09-15] MEDS: DESENEX/MITRAZOL/ZEASORB 1 APPLIC TOPICAL (08:39)
--- NOTE | 2025-09-15 08:45 | W.PN.CD ---
Today's Communication / Plan
-
stop heparin
med changes: Toprol XL --> coreg 25mg bid
imdur 30mg -->60mg daily
clonidine 0.1mg bid --> 0.2mg bid
cont ASA/Plavix, statin, torsemide, farxiga, finerenone
discharge planning: we will call patient for follow up
Impression / Plan
-
NSTEMI:
-echo 09/13: EF 60-65%, no sig valve disease
-cath report reviewed, summarized below: plan is med mgmt
-to consider drug coated balloon angioplasty of the diagonal at [place] if med mgmt fails
-stop IV heparin
-cont ASA/Plavix
-ccontinue coreg 25mg bid for better BP control
-increased imdur to 60mg daily: continue
CAD: severe
-cont med mgmt
HFpEF, chronic:
-volume status stable: continue torsemide, finerenone, farxiga
CKD3A:
-stable, monitor
DM2:
-on meds- management per primary team
HTN:
-elevated: trend with med changes above
PAD with b/l amputations
Cath 09/13/25
' Severe coronary artery disease. The culprit for the patient's presentation is most likely the ostial LCx, the only significant branch of which was already subtotally occluded in 2023. Thus, I see no benefit to revascularizing this territory. The
severe ISR of the D1 may also be a culprit lesion, but is a very poor target for repeat PCI given the rapid ISR, long and narrow stent, ostial location, and multiple jailed branches at risk for closure. The LAD itself has severe mid-distal disease,
but the mid-proximal vessel is non obstructive and stable from prior. Thus, I do not think there is a role for surgical revascularization as the LAD would not be a target. Recommended approach is to optimize medical therapy for angina and CAD. If
residual symptoms remain despite optimal medical therapy, would refer patient for drug coated balloon angioplasty of the diagonal at [place]. Otherwise, treat medically for NSTEMI with 48 hours heparin. Cont. DAPT with ASA/Plavix and consider extended
duration DAPT given severity of disease.'
Physical Exam
Vital Signs/Labs
Vital Signs
Temp Pulse Resp BP Pulse Ox
98.0 F 49 18 131/62 97
09/15/25 08:09 09/15/25 07:15 09/15/25 08:09 09/15/25 04:59 09/15/25 08:09
09/14/25 09/15/25 09/16/25
06:59 06:59 06:59
Actual Weight 138.2 kg 138.2 kg
09/15/25 02:29
09/14/25 05:00
APTT 65.8 Sec (23.4-35.0) H 09/15/25 02:29
Triglycerides 103 mg/dl (10-149) 09/14/25 05:00
LDL Cholesterol, Calc 29 mg/dl 09/14/25 05:00
VLDL Cholesterol, Calc 20 mg/dl (0-30) 09/14/25 05:00
HDL Cholesterol 35 mg/dl 09/14/25 05:00
LAB Results
09/13/25 09/13/25 09/13/25
11:57 13:01 18:48
Troponin I 0.124 H* 0.129 H* 0.159 H*
09/13/25 09/14/25
23:16 05:00
Troponin I 0.166 H* 0.161 H*
Physical Exam
Constitutional: No acute distress and Comfortable
EENT: Moist mucous membranes
Cardiovascular: Rhythm & rate is regular, JVD pressure is normal and Systolic murmur absent
Respiratory: Respiratory effort normal and Lungs clear to auscul.
Neuro/Psych: AO x 3
Data Reviewed
-
Date of Service: September 15, 2025
EKG: Other (Tele: SR 70s)
Labs: Labs Reviewed by me
[2025-09-15 09:02] LABS: Glucose - Point of Care 70 mg/dl (70-99)
[2025-09-15] MEDS: NOVOLOG FLEXPEN-LOW RESISTANCE SC (09:07)
--- NOTE | 2025-09-15 09:33 | W.PN.HOSP.TC ---
Today's Communication/Plan
-
dc
Assessment / Plan
Assessment / Plan
Physical Exam
General: Well Developed, Well Nourished and No Apparent Distress. Obese.
HEENT: Normocephalic, Moist mucous membranes and Atraumatic
Respiratory: Clear
Cardiac: S1/S2
GI: Soft, Non Tender, Non Distended and Normal Bowel Sounds;
Musculoskeletal: No Clubbing, No Cyanosis and No Edema. s/p right BKA/left AKA
Neuro: AAOX3. Followed commands.
Psych: calm
A/P:
# NSTEMI
#History of CAD/NSTEMI status post angioplasty and stent of diagonal artery in January 2024
He feels better. No chest pain overnight. He is requesting discharge
[facility] showed severe CAD,.
- Continue aspirin and Plavix
- Status post heparin drip for 48 hours. Increase the dose of Imdur clonidine to help with the blood pressure and anginal symptoms. Stop metoprolol and started on carvedilol
Continue with the statin
Discussed with manager media relations, okay to go home with new medications.
- Cardiology help appreciated
# Simus bradycardia
Lower dose of BB
# Leukocytosis, reactive
Afebrile
# Hypertensive emergency
- Blood pressure improved to 140
- As needed hydralazine
Chronic HFpEF
- Continue torsemide
PAD status post right BKA/left AKA
#Essential hypertension
Better controlled
- increased dose of clonidine
Hyperlipidemia
Type 2 diabetes
- Continue Humulin to 220 units in the morning, 70 in the evening
Hyperparathyroidism with mild hypercalcemia
Calcium at 10.8
CKD 3b
-Renal function at baseline
- Continue sodium bicarbonate
- Continue Kerendia
Obesity
History of CVA
- Continue statin
Gout
- Continue allopurinol
Full code
DVT prophylaxis�heparin drip
Cardiac diet
Total discharge time spent to see the patient, examined the patient, reviewed data and lab result, discuss discharge manager media relations plan with patient, nursing staff around 65 minutes
Anticipated Discharge: Today
Subjective/Interval History
-
Date of Service: September 15, 2025
He feels better
No chest pain
he is requesting to go home
Objective Data
-
Labs:
Laboratory Results
09/15/25 09/15/25
02:29 09:25
WBC 12.0 H
Hgb 13.3
Hct 41.0
Plt Count 206
APTT 65.8 H Pending
Vital Signs:
Vital Signs
Temp Pulse Resp BP Pulse Ox
98.0 F 49 18 131/62 97
09/15/25 08:09 09/15/25 07:15 09/15/25 08:09 09/15/25 04:59 09/15/25 08:09
I&O
09/14/25 09/15/25 09/16/25
06:59 06:59 06:59
Intake Total 60 / 60 1110 / 1110
Output Total 1425 / 1425 1745 / 1745
Balance -1365 / -1365 -635 / -635
[2025-09-15 10:03] LABS: Glucose - Point of Care 119 mg/dl (70-99)
[2025-09-15] MEDS: HUMULIN R U-500 (CONCENTRATED) SC (10:23)
[2025-09-15 12:16] VITALS: BP 89/51
[2025-09-15 12:19] VITALS: BP 115/48
[2025-09-15 12:23] LABS: Glucose - Point of Care 174 mg/dl (70-99)
[2025-09-15] MEDS: NOVOLOG FLEXPEN-LOW RESISTANCE 1 UNITS SC (12:24)
--- NOTE | 2025-09-15 14:43 | W.DCSUMMARY ---
Discharge Summary
Discharge Data
Date of Admission: 09/13/25
Date of Discharge: 09/15/25
-
Pending Results: No
Hospital Course
70 years old male presented with chest pain. Patient reports chest pain for few days happened intermittently. He had mildly positive troponin, peak at 0.166. EKG showed new anterolateral ST changes. Patient was evaluated by supply tech. He had
echocardiogram that showed normal biventricular size and function with left ventricle ejection fraction 60 to 65% with no significant valvular disease. Patient was admitted to telemetry floor. He was started on intravenous heparin with antiplatelet
therapy. He underwent left heart catheterization that showed severe disease with recommendation to do medical management. Transport Assistant also recommended to consider drug-coated balloon angioplasty of the diagonal artery at [facility]
if medical management would fail. Patient was monitored closely. Metoprolol was discontinued, he was started on carvedilol. He was maintained on aspirin and Plavix. Imdur was increased from 30 to 60 mg. Patient felt better. He did not have
recurrent pain. He remained hemodynamically stable. Patient was followed by supply tech and recommended outpatient follow-up. Patient was discharged home in a stable condition.
Discharge Plan
-
Patient Disposition: Home (Routine Discharge)
Discharge Diagnosis/Procedures: Non-ST elevation myocardial infarction status post left heart catheterization, intravenous heparin. You were followed by supply tech. We made changes to your cardiac medications as follows
Stop metoprolol. Started carvedilol, beta-alicia.
Increased dose of Imdur. Increased dose of clonidine.
Diet: Low Cholesterol and Diabetic, Carb Controlled
Driving Restrictions: No driving for 24 hours
Stand Alone Forms: DC Instructions- Cath/EP Lab
Referrals:
Vincent Cervantes MD [Active, Cardiology] - in two to four weeks
Geoffrey Maya DO [Family Provider, Internal Medicine]
Prescriptions:
New
carvedilol 25 mg Tablet
25 mg PO BID Qty: 60 0RF
clonidine HCl 0.1 mg Tablet
0.2 mg PO BID@0800,1700 Qty: 60 0RF
isosorbide mononitrate 30 mg Tablet Extended Release 24 Hr
60 mg PO DAILY Qty: 30 0RF
Continued
Kerendia 10 mg Tablet
10 mg PO DAILY
Humulin R U-500 (Conc) Kwikpen 500 unit/mL (3 mL) insulin pen
220 unit SC DAILY
Humulin R U-500 (Conc) Kwikpen 500 unit/mL (3 mL) insulin pen
70 unit SC QPM
Patient Comments:
with dinner
docusate sodium [Colace] 100 mg Capsule
100 mg PO DAILYPRN PRN (Reason: constipaiton)
multivitamin Tablet
1 tab PO DAILY
acetaminophen 325 mg Tablet
650 mg PO Q6HPRN PRN (Reason: mild pain)
lidocaine [Salonpas (lidocaine)] 4 % Adhesive Patch,Medicated
1 patch TOPICAL DAILY PRN (Reason: prosthetic leg pain)
allopurinol 100 MG tablet
100 mg PO DAILY
Rx Instructions:
in am
aspirin [Children's Aspirin] 81 mg Tablet,Chewable
81 mg PO DAILY 30 Days Qty: 30 0RF
torsemide 10 mg Tablet
10 mg PO DAILY
dapagliflozin propanediol [Farxiga] 10 mg Tablet
10 mg PO DAILY
clopidogrel 75 MG tablet
75 mg PO DAILY Qty: 30 0RF
rosuvastatin 40 MG tablet
40 mg PO QPM Qty: 30 0RF
Discontinued
metoprolol succinate [Toprol XL] 100 MG tablet extended release 24 hr
100 mg PO DAILY
isosorbide mononitrate 30 mg tablet extended release 24 hr
30 mg PO DAILY
clonidine HCl 0.1 MG tablet
0.1 mg PO BID@0800,1700 Qty: 60 0RF
Discharge Orders:
Discharge Patient (As Directed); Ordered 09/15/25
Ordered By: Mylene Hunter
Care Plan Goals
Care Plan Goals:
Problem: Readiness for enhanced knowledge related to diagnosis and treatment plan
Goal: Understand your diagnosis and treatment plan needs, including medications if applicable.
Instructions: Know your diagnosis, underlying causes and treatment plan options, including medications if applicable. Consult with your health care team to learn about your diagnosis and treatment plan, including medications if applicable.
Discharge Date and Time
Print Language: SPANISH
--- NOTE | 2025-09-15 15:15 | PTCARENOTE ---
Pt's IV line & court monitor D/C'd; D/C instructions discussed w/pt. Clarification for Imdur dosage daily clarified w/Dr Hunter & instructions reprinted. Pt assisted w/dressing & getting into own wheelchair; pt taken out by staff & assisted pt's
spouse w/getting pt into their personal wheelchair van.
== END 2025-09-15 15:05 | disposition home or self-care (01) | DRG 281 ==
LOC: IVU 13:53
PROVIDERS: Student in an Organized Health Care Education/Training Program; ADMITTING PHYSICIAN Hospitalist; ATTENDING PHYSICIAN Internal Medicine; CONSULT PHYSICIAN Internal Medicine; EMERGENCY PHYSICIAN Emergency Medicine; FAMILY PHYSICIAN Internal Medicine
PROC: 4A023N7 Measurement of Cardiac Sampling and Pressure, Left Heart, Percutaneous Approach (ICD-10-PCS; 2025-09-13)
PROC: B2111ZZ Fluoroscopy of Multiple Coronary Arteries using Low Osmolar Contrast (ICD-10-PCS; 2025-09-13)
DX: I21.4 Non-ST elevation (NSTEMI) myocardial infarction (principal); I13.0 Hypertensive heart and chronic kidney disease with heart failure and stage 1 through stage 4 chronic kidney disease, or unspecified chronic kidney disease; I50.32 Chronic diastolic (congestive) heart failure; I16.1 Hypertensive emergency; E11.22 Type 2 diabetes mellitus with diabetic chronic kidney disease; E78.00 Pure hypercholesterolemia, unspecified; E11.51 Type 2 diabetes mellitus with diabetic peripheral angiopathy without gangrene; N18.32 Chronic kidney disease, stage 3b; E21.3 Hyperparathyroidism, unspecified; E66.01 Morbid (severe) obesity due to excess calories; I44.0 Atrioventricular block, first degree; I25.10 Atherosclerotic heart disease of native coronary artery without angina pectoris; M10.9 Gout, unspecified; Z95.5 Presence of coronary angioplasty implant and graft; I25.2 Old myocardial infarction; Z86.73 Personal history of transient ischemic attack (TIA), and cerebral infarction without residual deficits; Z79.4 Long term (current) use of insulin; Z79.02 Long term (current) use of antithrombotics/antiplatelets; Z79.82 Long term (current) use of aspirin; Z89.511 Acquired absence of right leg below knee; Z82.49 Family history of ischemic heart disease and other diseases of the circulatory system; Z79.899 Other long term (current) drug therapy; Z89.612 Acquired absence of left leg above knee; Z79.84 Long term (current) use of oral hypoglycemic drugs
CPT/HCPCS: 71045; 80053; 80061; 82962; 83036; 84484; 85025; 85027; 85730; 93005; 93306; 93458; 96365; 96366; 99152; 99153; 99285; C1760; C1769; Q9957; Q9967